=== PATIENT | male | born 1945 | race Caucasian/White ===

== ENCOUNTER 2017-03-05 21:35 | Inpatient (IN) | payer OTHER ==
[~2017-03-05] VITALS: Ht 182.9 cm; Wt 51.6 kg
--- NOTE | ~2017-03-05 | EKG ---
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
[~2017-03-05 21:35] MED LIST: ALEVE220 MG PO; ASA81BEC PO; ATENOLOL 100MG100 MG PO; AUGMENTIN PO; ETODOLAC 400 M400 M1 PO; HYDROCODONE-AP1 EAC6 PO; LEVOTHYROXIN0.075 MG PO; LISINOPRIL20 MG PO; OMEPRAZOLE 20 M20 M1 PO; OMEPRAZOLE20 M2 PO; ONDANSETRON HCL4 M2 PO; PRILOSEC20 MG PO; PROTONIX 20 MG20 MG PO; TENORMIN25 MG PO; TENORMIN50 MG PO; TRAMADOL 50 MG50 MG PO; TRINATE TABLET1 TAB PO; URSODIOL300 MG PO; VIAGRA100 MG PO; VITAMIN B-1100 M1 PO; WELLBUTRIN 100100 MG PO; ZOFRAN ODT4 MG PO; [UNRECOGNIZED DRUG - CODE] PO
[2017-03-05 21:38] VITALS: BP 126/63
[2017-03-05 22:27] LABS: ABSOLUTE NEUTROPHILS 4.5 thou/uL (1.4-8.2); BASOPHILS 1.1 % (0.0-2.0); EOSINOPHILS 0.3 % (0.0-3.0); HEMATOCRIT 36.7 % (42.0-52.0); HEMOGLOBIN 12.5 gm/dL (14.0-18.0); LYMPHOCYTES 15.2 % (24.0-44.0); MANUAL DIFF NO; MCH 32.7 pg (26.0-34.0); MCHC 34.2 g/dL (28.0-37.0); MCV 95.5 fL (80.0-100.0); MONOCYTES 7.8 % (1.0-8.0); PLATELET COUNT 135 thou/uL (150-400); POLYS 75.6 % (36.0-66.0); RBC 3.84 mil/uL (4.50-6.00); RDW 17.1 % (10.5-14.5)
[2017-03-05 22:33] LABS: ANION GAP 12 mmol/L (7-16); BUN 27 mg/dL (7-18); CALCIUM 8.5 mg/dL (8.5-10.1); CHLORIDE 103 mmol/L (98-107); CO2 25 mmol/L (21-32); CREATININE 1.1 mg/dL (0.7-1.3); GLUCOSE 71 mg/dL (74-106); POTASSIUM 4.4 mmol/L (3.5-5.1); SODIUM 140 mmol/L (136-145)
[2017-03-05 22:40] LABS: TROPONIN-I < 0.04 ng/mL (<0.04-0.07)
[2017-03-06 00:20] VITALS: BP 134/86
[2017-03-06 00:30] VITALS: BP 134/86
[2017-03-06 04:45] VITALS: BP 144/82
[2017-03-06 05:06] LABS: CHOLESTEROL 84 mg/dL (<200); HDL CHOLESTEROL 45 mg/dL (>40); LDL CHOLESTEROL 28 mg/dL (<100); TC:HDL 1.9 Ratio (Not establshd); TRIGLYCERIDE 58 mg/dL (<150); VLDL 12 mg/dL (<40)
[2017-03-06 05:07] LABS: SERUM ASSESSMENT Clear
[2017-03-06 07:41] VITALS: BP 138/61
[2017-03-06 16:15] VITALS: BP 112/51
[2017-03-06 19:36] VITALS: BP 117/60
[2017-03-07 04:53] VITALS: BP 130/60
[2017-03-07 05:47] LABS: HEMATOCRIT 33.1 % (42.0-52.0); HEMOGLOBIN 11.5 gm/dL (14.0-18.0); MCH 32.7 pg (26.0-34.0); MCHC 34.8 g/dL (28.0-37.0); MCV 94.2 fL (80.0-100.0); RBC 3.51 mil/uL (4.50-6.00); RDW 17.5 % (10.5-14.5); WBC 6.8 thou/uL (4.0-11.0)
[2017-03-07 06:05] LABS: CALCIUM 8.4 mg/dL (8.5-10.1); CREATININE 1.1 mg/dL (0.7-1.3); POTASSIUM 3.8 mmol/L (3.5-5.1)
[2017-03-07 08:00] VITALS: BP 128/75
[2017-03-07 16:00] VITALS: BP 118/60
[2017-03-07 17:24] VITALS: BP 118/60
== END 2017-03-07 17:50 | disposition home or self-care (01) | DRG 391 ==
LOC: ER 21:35 → 4S 23:09 → EROBS 23:09 → 4S 03-06 00:11
PROVIDERS: Emergency Medicine; Nurse Practitioner Family
DX: K21.9 Gastro-esophageal reflux disease without esophagitis (principal); E43 Unspecified severe protein-calorie malnutrition; Z68.1 Body mass index [BMI] 19.9 or less, adult; R07.9 Chest pain, unspecified; I25.10 Atherosclerotic heart disease of native coronary artery without angina pectoris; I10 Essential (primary) hypertension; E78.5 Hyperlipidemia, unspecified; E03.9 Hypothyroidism, unspecified; F17.210 Nicotine dependence, cigarettes, uncomplicated; E78.00 Pure hypercholesterolemia, unspecified; Z85.89 Personal history of malignant neoplasm of other organs and systems; Z93.0 Tracheostomy status; Z93.1 Gastrostomy status; Z90.49 Acquired absence of other specified parts of digestive tract; Z79.82 Long term (current) use of aspirin; Z79.899 Other long term (current) drug therapy
CPT/HCPCS: 10100

== ENCOUNTER 2017-03-14 16:57 | Inpatient (IN) | payer OTHER ==
[~2017-03-14] VITALS: Ht 182.9 cm; Wt 50.7 kg
--- NOTE | ~2017-03-14 | EKG ---
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
--- NOTE | ~2017-03-14 | HC ---
[facility] [place] [address] CONSULTATION Name: JORDAN PARMAR Room #: 443-P [facility] IN ..#: [id number] Admission: 03/14/17 Attend Phys: Zachary Aguila MD Discharge: 03/17/17 Date of : 43 Report #: [id number] THIS REPORT FOR: //name// CC: [facility] physician/PCP Sterling Aguila DATE OF SERVICE: 03/16/2017 We were asked to see the patient by Dr. Johnson. INDICATIONS: The patient is a 72-year-old with chest pain. The patient states that he has chest pain on occasion, characterized as severe mid sternal pain without specific radiation. This was initially thought to be indigestion, but became unassociated with meals, there is no particular association with exertion. We note that the patient had a negative chemical stress test recently. Cardiac catheterization shows a mid portion, 75% LAD, 80% in distal circumflex beyond large marginals and 60% right coronary stenosis. Left ventricular function satisfactory by echo. PAST HISTORY: Significant for throat cancer treated with radiation and chemotherapy. The patient also has hypothyroidism, hypertension and elevated cholesterol. SOCIAL HISTORY: The patient is . He lives in [place] near the [facility]. He is a longtime smoker, continues to do so and has 2 drinks of alcohol a day. MEDICATIONS AT HOME: Atenolol, Protonix, levothyroxine, hydrocodone. ALLERGIES: None known. FAMILY HISTORY: Positive for coronary artery disease in mother who is . REVIEW OF SYSTEMS: GENERAL: The patient has been in his usual health. No change in appetite, no fatigability, sleeping problems, fever, eyes, no vision changes. HEENT: No headache, vertigo, or hearing problems. RESPIRATORY: No shortness of breath. No cough or sputum production. CARDIAC: As mentioned, chest pain, no palpitations. SKIN: No rash or infection. ENDOCRINE: No hot or cold intolerance. GASTROINTESTINAL: No nausea, vomiting, diarrhea or constipation. [facility] [address] [place] [address] CONSULTATION Name: JORDAN PARMAR Room #: 443-P [facility] IN .R.#: [id number] Admission: 03/14/17 Attend Phys: Zachary Aguila MD Discharge: 03/17/17 Date of : 41 Report #: [id number] GENITOURINARY: No urgency, frequency seizures. No motor or sensory dysfunction. PSYCHIATRIC: No depression or anxiety. MUSCULOSKELETAL: No bone or joint problems. IMMUNOLOGIC: No lupoid rash, no rheumatoid arthritis. PHYSICAL EXAMINATION: VITAL SIGNS: Blood pressure 132/64, heart rate 81, respiratory rate 18, temperature 36.6, O2 sat 95% on room air. The patient is a thin fellow, ectomorphic habitus. HEENT: Normocephalic. No icterus, no arcus. NECK: No lymphadenopathy, left cervical bruit. CHEST: Decreased breath sounds bilaterally. Heart rhythm regular. No murmurs or gallops. ABDOMEN: Soft, no mass, no tenderness. EXTREMITIES: No clubbing, cyanosis or edema. NEUROLOGIC: No motor or sensory dysfunction. Oriented x 3. MUSCULOSKELETAL: No bone or joint dyssymmetry or deformity. SKIN: No rash or infection. PSYCHIATRIC: Shows insight into problem and answers questions appropriately. Situation was discussed with the patient, options and alternatives were reviewed with Dr. Johnson and with the patient. Options include medical management, angioplasty with stent placement, and surgery, the patient has not been on aggressive medical management and he does wish to avoid surgery. The patient would like to try medical management to see if this controls symptoms. The coronary artery disease is not severe enough in our opinion to threaten life and operation would be for symptom improvement only at this point, if this fails with medical management, then more aggressive definitive treatment can be recommended. The patient understands all of this and agrees with this approach. Thank you for the consult. <ELECTRONICALLY SIGNED> By: Duncan Gtz MD 03/18/17 1159 2037 2246 Duncan Gtz MD /nt
--- NOTE | ~2017-03-14 | CATHLAB ---
[address] [address] [facility] [place] [address] INVASIVE PROCEDURE REPORT Name: JORDAN PARMAR Room #: 443-P [facility]#: [id number] Admission: 03/14/17 Attend Phys: Zachary Aguila MD Discharge: 03/17/17 Date of : 41 Date of Service: 03/17/17 1806 Report #: [id number] THIS REPORT FOR: //name// CC: [facility] physician/PCP Sterling Aguila DATE OF SERVICE: 03/16/2017 INDICATIONS: A 72-year-old male patient with chest pain and significant risk factors. PROCEDURES: 1. Left heart catheterization. 2. Selective left and right coronary angiography. 3. Measurement of left ventricular end diastolic pressures. SANDSTONE SPLITTER: Mike Johnson M.D. BRIEF DESCRIPTION OF PROCEDURE: After informed consent was obtained, the patient was brought to the cardiac catheterization laboratory in stable condition. The patient's right groin was prepped and draped in the usual sterile manner after which lidocaine was then instilled. Utilizing a modified Seldinger technique, the right femoral artery was then accessed. Under fluoroscopic visualization using selective coronary catheters, the right and left coronaries were opacified and visualized. The left ventriculogram was likewise imaged per standard protocol with EDP being measured. Subsequent to this, the sheath was removed, hemostasis achieved. The patient tolerated the procedure well. There were no complications. FINDINGS: 1. FLUOROSCOPY: Under fluoroscopic visualization, there was calcific plaquing along the epicardial coronary arteries. No calcific plaquing on the valvular intramyocardial structures of the heart. 2. HEMODYNAMICS: A. Aortic pressure 113/76. B. Left ventricular end diastolic pressure is 24-27. 3. ANGIOGRAPHY: This is a right coronary dominant system. A. Left main is of normal origin and caliber, bifurcates left anterior descending and left circumflex and is free of high-grade obstructive disease. B. Left anterior descending is a moderate caliber type 2 vessel which courses in the anterior interventricular sulcus. There is a mid LAD lesion, which appears to be 70% with an eccentric . The LAD gives rise to diagonal and septal branches were free of significant high-grade plaquing. C. Left circumflex is a nondominant moderate-caliber vessel which courses in the AV groove, gives rise to a terminal marginal branch prior to which there is [facility] [address] [place] [address] INVASIVE PROCEDURE REPORT Name: JORDAN PARMAR Room #: 443-P [facility] IN ..#: [id number] Admission: 03/14/17 Attend Phys: Zachary Aguila MD Discharge: 03/17/17 Date of : 41 Date of Service: 03/17/17 1806 Report #: [id number] a 95+% stenosis. Beyond this, the vessel is quite small and diminutive. D. Right coronary is a moderate caliber to large caliber vessel, courses in the AV groove where there is a 60% proximal lesion. It then continues on to the crux of the heart where it gives rise to posterior descending artery and posterolateral branch, all of which are free of high-grade disease. IMPRESSION: 1. Coronary artery disease, severe, 3 vessel. 2. Abnormal hemodynamics. RECOMMENDATIONS: In view of the patient having high-grade 2-vessel disease with a moderate RCA, surgical option will be discussed with the patient. We will have him speak to the surgeon, but if he is unwilling, then percutaneous revascularization would be the next most appropriate option followed by medical management. We will await the patient's decision. <ELECTRONICALLY SIGNED> By: Mike Johnson MD 03/18/17 1022 1806 1949 Mike Johsnon MD /nt
--- NOTE | ~2017-03-14 | TST ---
[facility] [place] [address] TREADMILL STRESS TEST Name: JORDAN PARMAR Room #: 443-P [facility]#: [id number] Admission: 03/14/17 Attend Phys: Zachary Aguila MD Discharge: 03/17/17 Date of : 41 Date of Service: 03/18/17 1113 Report #: [id number] THIS REPORT FOR: //name// CC: [facility] physician/PCP Sterling Aguila DATE OF SERVICE: 03/17/2017 EXERCISE TREADMILL STUDY DATE OF PROCEDURE: 03/17/2017. This is a 72-year-old male patient with 2-vessel coronary artery disease. Study is obtained to evaluate effectiveness of medical regimen. PROCEDURE: Symptom-limited low-level treadmill. BRIEF DESCRIPTION OF PROCEDURE: After informed consent was obtained, the patient was brought to the exercise treadmill suite in stable condition. The patient underwent modified Oren protocol exercise treadmill study, exercising to about 2 minutes 54 seconds. The study was stopped secondary to dyspnea and fatigue. The patient denied any chest pain, pressure, tightness or heaviness. Resting electrocardiogram demonstrated normal sinus rhythm and nonspecific ST-T wave changes. Continuous electrocardiographic monitoring demonstrated development of PACs, but no significant ventricular tachyarrhythmias. Occasional PVCs were also noted. Maximal heart rate achieved was 141 beats per minute, which was 93% of predicted maximal heart rate. The patient achieved 4.6 METS. Resting echocardiogram, normal sinus rhythm, nonspecific ST-T wave changes. Continuous electrocardiographic monitoring demonstrated the development of some downsloping ST segments, which were not consistent to beat. IMPRESSION: 1. Subjectively negative for reproduction of anginal symptoms at this heart rate and double product. 2. Poor functional capacity. 3. Equivocal ST-segment changes which were not consistently compatible with diagnosis of ischemia without any symptoms developing of chest pain. By: 1113 1440 Mike Johnson MD /nt
[2017-03-14 16:58] VITALS: BP 145/82
[2017-03-14 17:23] LABS: ABSOLUTE NEUTROPHILS 4.4 thou/uL (1.4-8.2); BASOPHILS 1.2 % (0.0-2.0); HEMATOCRIT 38.3 % (42.0-52.0); HEMOGLOBIN 13.1 gm/dL (14.0-18.0); LYMPHOCYTES 26.5 % (24.0-44.0); MANUAL DIFF NO; MCH 32.5 pg (26.0-34.0); MCHC 34.1 g/dL (28.0-37.0); MCV 95.2 fL (80.0-100.0); MONOCYTES 9.3 % (1.0-8.0); PLATELET COUNT 252 thou/uL (150-400); RBC 4.02 mil/uL (4.50-6.00); RDW 16.8 % (10.5-14.5); WBC 7.1 thou/uL (4.0-11.0)
[2017-03-14 17:30] LABS: ANION GAP 9 mmol/L (7-16); BUN 21 mg/dL (7-18); CALCIUM 9.1 mg/dL (8.5-10.1); CHLORIDE 103 mmol/L (98-107); CO2 27 mmol/L (21-32); CREATININE 1.1 mg/dL (0.7-1.3); GLUCOSE 76 mg/dL (74-106); POTASSIUM 4.8 mmol/L (3.5-5.1); SODIUM 139 mmol/L (136-145)
[2017-03-14 17:38] LABS: TROPONIN-I < 0.04 ng/mL (<0.04-0.07)
[2017-03-14 20:30] VITALS: BP 144/72
[2017-03-14 22:39] LABS: APTT 26.6 Seconds (24.5-32.8); PROTIME 10.4 Seconds (9.3-11.4)
[2017-03-15 04:18] VITALS: BP 139/71
[2017-03-15 04:43] LABS: ANION GAP 12 mmol/L (7-16); BUN 20 mg/dL (7-18); CALCIUM 8.3 mg/dL (8.5-10.1); CHLORIDE 104 mmol/L (98-107); CHOLESTEROL 83 mg/dL (<200); CO2 24 mmol/L (21-32); GLUCOSE 84 mg/dL (74-106); HDL CHOLESTEROL 47 mg/dL (>40); LDL CHOLESTEROL 13 mg/dL (<100); SODIUM 140 mmol/L (136-145); TC:HDL 1.8 Ratio (Not establshd); TRIGLYCERIDE 116 mg/dL (<150); VLDL 23 mg/dL (<40)
[2017-03-15 04:48] LABS: POTASSIUM 3.5 mmol/L (3.5-5.1)
[2017-03-15 08:05] VITALS: BP 149/69
[2017-03-15 16:16] VITALS: BP 114/65
[2017-03-15 20:05] VITALS: BP 132/64
[2017-03-16 08:56] VITALS: BP 136/58
[2017-03-16 16:31] VITALS: BP 169/73
[2017-03-16 20:25] VITALS: BP 114/59
[2017-03-17 05:23] VITALS: BP 133/69
[2017-03-17 08:00] VITALS: BP 112/63
[2017-03-17 16:31] VITALS: BP 121/69
[2017-03-17] MEDS ORDERED: METOPROLOL SUCC25 M1 PO (18:03)
[2017-03-17] MEDS ORDERED: IMDUR 30 MG TAB30 M1 PO (18:04)
[2017-03-17 18:13] VITALS: BP 121/69
== END 2017-03-17 19:17 | disposition home or self-care (01) | DRG 286 ==
LOC: ER 16:57 → EROBS 18:10 → 4S 18:10
PROVIDERS: Emergency Medicine; Nurse Practitioner; Nurse Practitioner Family
PROC: 4A023N7 Measurement of Cardiac Sampling and Pressure, Left Heart, Percutaneous Approach (ICD-10-PCS; principal; 2017-03-16)
PROC: B2111ZZ Fluoroscopy of Multiple Coronary Arteries using Low Osmolar Contrast (ICD-10-PCS; 2017-03-16)
PROC: B2151ZZ Fluoroscopy of Left Heart using Low Osmolar Contrast (ICD-10-PCS; 2017-03-16)
DX: I25.110 Atherosclerotic heart disease of native coronary artery with unstable angina pectoris (principal); E43 Unspecified severe protein-calorie malnutrition; J44.9 Chronic obstructive pulmonary disease, unspecified; I10 Essential (primary) hypertension; F17.210 Nicotine dependence, cigarettes, uncomplicated; E78.5 Hyperlipidemia, unspecified; E03.9 Hypothyroidism, unspecified; Z93.0 Tracheostomy status; Z85.09 Personal history of malignant neoplasm of other digestive organs; Z93.1 Gastrostomy status; Z82.49 Family history of ischemic heart disease and other diseases of the circulatory system; Z80.9 Family history of malignant neoplasm, unspecified; Z79.899 Other long term (current) drug therapy; I25.2 Old myocardial infarction; Z71.6 Tobacco abuse counseling
CPT/HCPCS: 10100

== ENCOUNTER 2019-06-09 13:38 | Inpatient (IN) | payer OTHER ==
[~2019-06-09] VITALS: Ht 182.9 cm; Wt 52.2 kg
--- NOTE | ~2019-06-09 | HC ---
[facility] [place] [address] CONSULTATION Name: JORDAN PARMAR Room #: 204-P [facility] IN ..#: [id number] Admission: 06/09/19 Attend Phys: Randy Goldman MD Discharge: Date of : 43 Report #: [id number] THIS REPORT FOR: //name// CC: [facility] physician/PCP Randy Goldman DATE OF SERVICE: 06/10/2019 IDENTIFICATION: Psychiatric consultation was requested for alcohol withdrawal. HISTORY OF PRESENT ILLNESS: The patient is a 74-year-old , retired male with history of alcohol dependence. He drinks about a pint of whiskey on a daily basis. He denies any past history of depression, jo-ann or psychosis. The patient presents to the hospital with hip fracture due to falling up the stairs while carrying his dog. He has been placed on alcohol withdrawal protocol, but has not required any doses of Ativan thus far. On interview, the patient states that his mood is good and he denies any concerns for alcohol withdrawal today. ALLERGIES: None. MEDICATIONS: Ativan as needed according to the CIWA protocol. PAST MEDICAL HISTORY: COPD, transaminitis, bile duct stone, right hip fracture, rhabdomyolysis, right inguinal hernia, hypothyroidism, hypertension, hyperlipidemia. FAMILY HISTORY: Noncontributory. SOCIAL HISTORY: , lives with , retired. Smokes one pack of cigarettes per day. LABORATORY DATA: Urine drug screen negative. Blood alcohol level less than 10, bilirubin 1.1. CK 718. MENTAL STATUS EXAMINATION: Cachectic-appearing male, pleasant, good eye contact. Speech regular rate and rhythm. Thought process linear, logical and coherent. No hallucinations or delusions. No suicidal or homicidal ideation. Affect calm and euthymic. Alert and oriented x3. No evidence of tremors. Insight and judgment good. DIAGNOSIS: Alcohol dependence. PLAN: I agree with the alcohol withdrawal protocol. Currently, the patient is [facility] [address] [place] [address] CONSULTATION Name: GHULAMNEELAM Room #: 204-P [facility] IN [facility].#: [id number] Admission: 06/09/19 Attend Phys: Randy Goldman MD Discharge: Date of : 43 Report #: [id number] not demonstrating any signs or symptoms of alcohol withdrawal, but he will need to be monitored for at least the next couple of days. Thank you for this consultation. Please contact us with any further questions or concerns.. By: 1001 213 Queenie Sterling MD /nt
[~2019-06-09 13:38] MED LIST changes: +IMDUR 30 MG TAB30 M1 PO; +METOPROLOL SUCC25 M1 PO
[2019-06-09 13:45] VITALS: BP 176/94
[2019-06-09 14:10] LABS: ABSOLUTE NEUTROPHILS 9.9 thou/uL (1.4-8.2); BASOPHILS 0.7 % (0.0-2.0); HEMATOCRIT 37.8 % (42.0-52.0); HEMOGLOBIN 12.6 gm/dL (14.0-18.0); LYMPHOCYTES 6.4 % (24.0-44.0); MCH 32.3 pg (26.0-34.0); MCHC 33.4 g/dL (28.0-37.0); MCV 96.8 fL (80.0-100.0); MONOCYTES 10.7 % (1.0-8.0); PLATELET COUNT 143 thou/uL (150-400); POLYS 82.2 % (36.0-66.0); RBC 3.91 mil/uL (4.50-6.00); RDW 18.4 % (10.5-14.5); WBC 12.1 thou/uL (4.0-11.0)
[2019-06-09 14:24] LABS: APTT 27.9 Seconds (24.5-32.8); PROTIME 10.4 Seconds (9.3-11.4)
[2019-06-09 14:28] LABS: ANION GAP 14 mmol/L (7-16); BUN 19 mg/dL (7-18); CALCIUM 8.9 mg/dL (8.5-10.1); CHLORIDE 98 mmol/L (98-107); CO2 23 mmol/L (21-32); CREATININE 0.9 mg/dL (0.7-1.3); GLUCOSE 123 mg/dL (74-106); SODIUM 135 mmol/L (136-145)
[2019-06-09 14:29] LABS: ALBUMIN 3.5 g/dL (3.4-5.0); SALICYLATE 4.6 mg/dL (2.8-20.0); SGOT 35 U/L (15-37); SGPT 12 U/L (30-65); TOTAL BILIRUBIN 1.1 mg/dL (<0.1-1.0); TOTAL PROTEIN 7.6 g/dL (6.4-8.2)
[2019-06-09 14:33] LABS: URINE BILIRUBIN NEGATIVE (Negative); URINE BLOOD TRACE (Negative); URINE CLARITY CLEAR; URINE COLOR YELLOW; URINE GLUCOSE-RANDOM* NEGATIVE (Negative); URINE KETONES 1+ (Negative); URINE LEUKOCYTES NEGATIVE (Negative); URINE NITRITE NEGATIVE (Negative); URINE PROTEIN (DIPSTICK) TRACE (Negative)
[2019-06-09] MEDS ORDERED: ACCUNEB SO1.25 MG/1 INH (14:36)
[2019-06-09 14:42] LABS: AMP/METHAMP Negative (Negative); BARBITURATES Negative (Negative); BENZODIAZEPINES Negative (Negative); COCAINE Negative (Negative); METHADONE Negative (Negative); OPIATES Negative (Negative); PCP Negative (Negative)
[2019-06-09] MEDS ORDERED: SYMBICORT160 MCG/4. INH (15:17)
[2019-06-09] MEDS ORDERED: COMBIVENT INH (15:17)
[2019-06-09 15:50] LABS: MAGNESIUM 1.4 mg/dL (1.8-2.4); PHOSPHORUS 3.5 mg/dL (2.5-4.9)
[2019-06-09 15:55] VITALS: BP 184/87
[2019-06-09 15:56] VITALS: BP 184/87
[2019-06-09 16:20] LABS: FOLIC ACID 3.2 ng/mL (8.6-58.9)
[2019-06-09 16:26] LABS: ALBUMIN 3.5 g/dL (3.4-5.0); TOTAL PROTEIN 7.8 g/dL (6.4-8.2)
[2019-06-09 16:39] VITALS: BP 169/73
[2019-06-09 16:45] VITALS: BP 194/92
--- NOTE | 2019-06-09 17:48 | NUR ---
PT ADMITED FROM ER. ADMISSION HX AND ASSESSMENT COMPLETED. ORDERS NOTED. PT REPORT HAVING PROBLEM URINATING. POST VOID BLADDER SCAN SHOWED 358. ORDERS GIVEN TO INSERT A RICK. ON CIWA PROTOCAL. NPO AFTER MIDNIGHT. WILL CONTINUE TO MONITOR.
[2019-06-09 20:00] VITALS: BP 158/82
[2019-06-10] VITALS (16 sets, daily range): BP systolic 90–164; BP diastolic 49–74
--- NOTE | 2019-06-10 03:16 | NUR ---
ASSUMED PT CARE AT 1900. PT A/OX4, IN BED, VITAL SIGNS STABLE, ASSESSMENT CHARTED. PAIN ADEQUTELY MANAGED WITH PAIN MEDICATION. PT MADE COMFORTABLE IN BED. FALL PRECAUTIONS IN PLACE. PT NPO AT MIDNIGHT FOR SURGERY IN AM. CIWA PROTOCOL IN PLACE. PT RESTED WELL THROUGH THE NIGHT. PROGRESSING TOWARD PLAN OF CARE. WILL CONTINUE TO MONITOR.
[2019-06-10 05:11] LABS: HEMATOCRIT 34.4 % (42.0-52.0); HEMOGLOBIN 11.3 gm/dL (14.0-18.0); MCH 32.2 pg (26.0-34.0); MCHC 32.9 g/dL (28.0-37.0); RBC 3.51 mil/uL (4.50-6.00); RDW 18.3 % (10.5-14.5); WBC 13.7 thou/uL (4.0-11.0)
[2019-06-10 05:28] LABS: CREATININE 0.9 mg/dL (0.7-1.3); POTASSIUM 3.2 mmol/L (3.5-5.1)
--- NOTE | 2019-06-10 15:18 | NUR ---
PT HAD SURGERY THIS AM. SURGICAL DRESSING ON THE RIGHT HIP C/D/I. ACDS ON. RICK CATHETER PATENT TO DD. FALL PRECAUTION IN PLACE. WILL CONTINUE TO MONITOR.
[2019-06-11] VITALS (7 sets, daily range): BP systolic 104–143; BP diastolic 52–74
--- NOTE | 2019-06-11 04:17 | NUR ---
ASSESSMENT CHARTED. VSS. BP LOW, ASYMPTOMATIC. PT DENIES PAIN EXCEPT WHEN MOVING, DENIES PAIN MEDS AT THIS TIME, EDUCATED ON PAIN MANAGEMENT WHEN NEEDED. CIWA PROTOCOL, ATIVAN PER EMAR GIVEN. RICK DD. FLUIDS AND ABX PER EMAR. R HIP DRESSING CDI. SCDS BILAT. WILL CONTINUE TO MONITOR AND WITH POC.
[2019-06-11 05:24] LABS: HEMATOCRIT 22.3 % (42.0-52.0); MCH 32.7 pg (26.0-34.0); MCHC 32.9 g/dL (28.0-37.0); MCV 99.5 fL (80.0-100.0); RBC 2.25 mil/uL (4.50-6.00); RDW 18.8 % (10.5-14.5); WBC 16.3 thou/uL (4.0-11.0)
[2019-06-11 05:26] LABS: HEMOGLOBIN 7.3 gm/dL (14.0-18.0)
[2019-06-11 05:47] LABS: CALCIUM 7.9 mg/dL (8.5-10.1); CREATININE 1.1 mg/dL (0.7-1.3); MAGNESIUM 1.8 mg/dL (1.8-2.4); PHOSPHORUS 2.8 mg/dL (2.5-4.9); POTASSIUM 3.4 mmol/L (3.5-5.1)
--- NOTE | 2019-06-11 08:00 | O ---
[facility] [place] [address] OPERATIVE REPORT Name: JUAN PARMAR J Room #: 204-P ADM IN M.R.#: [id number] Admission: 06/09/19 Attend Phys: Randy Goldman MD Discharge: Date of : 43 Report #: [id number] THIS REPORT FOR: //name// CC: [facility] physician/PCP Randy Goldman DATE OF SERVICE: 06/10/2019 SERVICE: Orthopedics. FACILITY: [facility]. SURGEON: Juan Michaels MD WASHROOM ATTENDANT: Veena Yoder NP. INDICATIONS FOR WASHROOM ATTENDANT: Assistance with reduction and internal fixation of this complex intertrochanteric hip fracture fixation. PREOPERATIVE DIAGNOSES: Displaced right intertrochanteric hip fracture. POSTOPERATIVE DIAGNOSIS: Displaced right intertrochanteric hip fracture. PROCEDURE: IM nail fixation of right intertrochanteric hip fracture with open reduction. COMPLICATIONS: None. DRAINS: None. SPECIMENS: None. ESTIMATED BLOOD LOSS: 150 mL. FINDINGS: Thornton and Nephew 42 cm x 11.5 mm 125 degree Thornton and Nephew InterTan nail with 95/90 interfrag screws and a 45 mm distal locking screw. HISTORY: The patient is a 74-year-old gentleman who sustained a fall at home resulting in a displaced right intertrochanteric hip fracture. He was admitted for definitive treatment. Risks, benefits, alternatives, and indication of surgery discussed with him in detail. Risks include but not limited to pain, bleeding, injury to nerves or blood vessels, malunion, nonunion, infection, need for further surgery including revision as well as complications related to anesthesia such as stroke, heart attack, pulmonary complications, thromboembolic disease and . Despite these risks, he wished to proceed. [facility] [address] [place] [address] OPERATIVE REPORT Name: GHULAMJUAN Room #: 204-P [facility] IN ..#: [id number] Admission: 06/09/19 Attend Phys: Randy Goldman MD Discharge: Date of : 41 Report #: [id number] PROCEDURE IN DETAIL: After right lower extremity was correctly identified in preoperative holding area as the operative extremity, the patient was taken to the operating room where general anesthesia was induced without complication. He was padded appropriately. Prophylactic antibiotics were administered at appropriate time. Legs were placed in traction boots. C-arm was used to assess the reduction. There was a good alignment on the AP, but the lateral showed quite a bit of apex anterior malangulation with translation of the femoral neck anteriorly indicating this was actually going to require an open reduction rather than a closed reduction. Right leg was prepped and draped in standard sterile fashion. Time-out procedure was performed. Under C-arm fluoroscopy in multiple planes, an incision was made and dissection taken down to the tip of the trochanter with a guidepin was then placed into the proximal femur. Advanced again under fluoroscopy on AP and lateral view. An incision was then made more distally and a Foy elevator was slid over the anterior aspect of the femur onto the femoral neck and then this would allow for a downward translation pressure on the femoral neck component to have better alignment. The guidepin was then advanced and then the entry reamer was utilized to obtain access to the proximal femur and then the femur was sequentially reamed to a 12.5 mm reamer for the 11.5 mm nail. The nail was then advanced over the guidewire and then with the open reduction maneuver performed with the Foy elevator, the outrigger was then used to place a guidepin into the femoral head. We did have to adjust the position of the pin because of the angle of displacement, I feel it was in satisfactory position. The outer reamer was then used and then the proximal portion of the femur was prepared for the cephalomedullary component of the internal fixation anticipating 10 mm of compression. The compression screw was then placed and fluoroscopy was used to confirm appropriate positioning of all hardware and then to watch the compression occurred which provided a stable fixation. After this was completed, the nail was locked proximally. Perfect [place] technique was then used to place the interlocking screw distally with a 45 mm distal interlock screw. After this was completed, the wound was copiously irrigated. Final x-rays were taken. Confirmation was performed radiographically in the assessment of the apex distance which was appropriate on AP and lateral view. Stable fixation was felt to be achieved with good alignment and length and rotation. Wounds were copiously irrigated. The IT band layer was closed with 0 Vicryl suture. Skin was closed with 2-0 Vicryl followed by skin guillermina. Sterile dressing was applied. The patient was awakened from anesthesia and taken to recovery room in stable condition. No complications. All counts were reported as correct. <ELECTRONICALLY SIGNED> By: Juan Michaels MD 06/11/19 0800 1321 1335 Juan Michaels MD /nt
[2019-06-11 09:25] LABS: HEMATOCRIT 21.1 % (42.0-52.0)
--- NOTE | 2019-06-11 14:03 | NUR ---
patient sedated in restraints due to ETOH withdraw. Patient admits from independent home post fall. Patient sustained hip fx and rec hip pinning. Sp with sister in law and niece who are at bedside. They report patient and live in independent home. They smoke at home and have 4 dogs. Patients spouse has a dtr but patient has no children. His brother Ed is supportive [phone]. Family has spoken with patient and spouse regarding moving to assisted living. Family reports they have denied need. Patient has a flight of steps to second floor for bedroom and bathroom. Per RN unable to come to hospital today. Niece plans to give snf list. Patient will likely need post acute care. Attempted to call left message on home number her cell is not a working number.
--- NOTE | 2019-06-11 16:22 | NUR ---
PT CARE ASSUMED APPROX 0700. PT AWAKE BUT NOT ALERT/DROWSY AND ORIENTED ONLY TO PERSON. IS AWARE AND ORDERS TO UTILIZE CIWA MEDS NECESSARY. DENIES PAIN AND SOA. VSS. NO DISTRESS NOTED. HIP PRECAUTIONS IN PLACE. CIWA PRECAUTIONS IN PLACE. FALL PRECAUTIONS IN PLACE. PT TOLERATING POC. BWR REMAIN IN PLACE. PT CONTINUES TO POSE A RISK TO SELF WHEN OUT OF BWR. AND EXTENDED GIVEN MULTIPLE CLINICAL UPDATES THIS SHIFT. ALL DENY QUESTIONS AND CONCERNS REGARDING POC. PT UNABLE TO PARTICIPATE IN THERAPIES THIS SHIFT DUE TO WITHDRAWL SYMPTOMS AND TREATMENT. DSG TO RLE C/D/I. NO ORDERS TO CHANGE. BLEEDING FROM PENIS NOTED AFTER PT PULLING ON CATH. RE-EDUCATED AND REORIENTED. STABLE AT THIS TIME.
[2019-06-12] VITALS (7 sets, daily range): BP systolic 87–119; BP diastolic 45–72
--- NOTE | 2019-06-12 03:09 | NUR ---
ASSESSMENT CHARTED. VSS. PT ALERT TO SELF AND PLACE, CONFUSED. CIWAH PROTOCOL. R HIP FX DRESSING CDI, PRECATUIONS. Q2 CHECKS SOFT NONVIOLENT RESTRAINTS. RICK IN PLACE DD. PRN AND SCHEDULED MEDS PER EMAR ALC WITHDRAW. X2 CALL ALEXIS FORD OTHER TO CHECK IN ON PT. WILL CONTINUE TO MONITOR AND WITH POC.
[2019-06-12 05:56] LABS: HEMOGLOBIN 6.9 gm/dL (14.0-18.0)
[2019-06-12 05:57] LABS: HEMATOCRIT 20.9 % (42.0-52.0); MCH 32.9 pg (26.0-34.0); MCV 99.5 fL (80.0-100.0); RBC 2.1 mil/uL (4.50-6.00); RDW 18.5 % (10.5-14.5); WBC 12.7 thou/uL (4.0-11.0)
[2019-06-12 06:10] LABS: CALCIUM 8.2 mg/dL (8.5-10.1); CREATININE 0.8 mg/dL (0.7-1.3); MAGNESIUM 1.8 mg/dL (1.8-2.4); POTASSIUM 3.5 mmol/L (3.5-5.1)
[2019-06-12 07:05] LABS: % SATURATION 5 % (20-39); IRON 11 ug/dL (65-175); TIBC 204 ug/dL (250-450)
[2019-06-12 07:40] LABS: OBSERVED RETIC COUNT 2.4 % (0.6-2.6)
[2019-06-12 13:38] LABS: HEMATOCRIT 20.1 % (42.0-52.0); MCHC 32.6 g/dL (28.0-37.0); RDW 18.8 % (10.5-14.5)
[2019-06-12 13:40] LABS: HEMOGLOBIN 6.5 gm/dL (14.0-18.0); MCH 32.4 pg (26.0-34.0); MCV 99.3 fL (80.0-100.0); RBC 2.02 mil/uL (4.50-6.00)
--- NOTE | 2019-06-12 15:54 | NUR ---
PATIENT REMAINED ON CIWA PROTOCOL & RESTRAINTS THIS SHIFT. MONITORED FREQUENTLY. OFTEN PULLING AT LINES AND SURGICAL DRESSING. MEDICATION ADMINISTERED FOR AGITATION & PAIN ORDERED. PATIENT AGITATION, PAIN, & RESTLESSNESS DECREASED WITH MEDS. FALL PRECAUTIONS IN PLACE. EDUCATION PROVIDED TO FAMILY & SPOUSE. REPORT GIVEN TO NATALIE CADE AT 15:40.
--- NOTE | 2019-06-13 02:14 | NUR ---
ASSUMED CARE OF PATIENT AT 1900. BP LOW, PALE, MINIMALLY RESPONSIVE. KINESIOTHERAPIST NOTIFIED, ORDERS OBTAINED FOR BLOOD TRANSFUSION. 1 UNIT PRBC INFUSED. MORE ALERT, STABLE BLOOD PRESSURE. MORE RESPONSIVE. RESTRAINTS REMOVED. CALLED TWICE, UPDATED ON POC. STATES THEY BOTH DRINK A LOT. WILL ENCOURAGE ORAL INTAKE OF FLUIDS. MONITOR H&H. SURGICAL DRESSING SLIGHTLY SATURATED. CARLOS APPROPRIATE WITHOUT INFLAMMATION OR ISSUE. WILL CONTINUE TO MONITOR.
[2019-06-13 04:06] LABS: CALCIUM 8.4 mg/dL (8.5-10.1); CREATININE 0.9 mg/dL (0.7-1.3); MAGNESIUM 1.7 mg/dL (1.8-2.4); POTASSIUM 3.4 mmol/L (3.5-5.1)
[2019-06-13 04:15] LABS: HEMATOCRIT 23.3 % (42.0-52.0); HEMOGLOBIN 7.9 gm/dL (14.0-18.0); MCH 32.5 pg (26.0-34.0); MCHC 33.9 g/dL (28.0-37.0); MCV 96.1 fL (80.0-100.0); RBC 2.43 mil/uL (4.50-6.00); RDW 18.2 % (10.5-14.5); WBC 17.9 thou/uL (4.0-11.0)
[2019-06-13 04:45] VITALS: BP 125/70
[2019-06-13 07:30] VITALS: BP 132/60
[2019-06-13 12:17] VITALS: BP 109/54
--- NOTE | 2019-06-13 14:33 | NUR ---
VERY ACTIVE IN BED. UNINTELLIGIBLE SPEECH. TREMULOUS, GRASPING AT THE AIR IF SOMETHING IS THERE. TRIES TO SMOKE AN INVISIBLE CIGARETTE. INCONTINENT OF URINE. BROTHER VISITS AND DOES NOT STAY LONG HE IS UNABLE TO COMMUNICATE WITH HIS BROTHER. CALLS AND UPDATED ON POC. ATIVAN PRN, LIBRIUM ORDERED IN PUDDING. FED FEW BITES OF EGG AT BREAKFAST AND SMALL AMOUNT OF LUNCH. FALL PRECAUTIONS IN PLACE, FREQUENT CHECKS.
--- NOTE | 2019-06-13 15:24 | NUR ---
PATIENT CONT IN RESTRAINTS. HE WILL NEED POST ACUTE CARE. NEED THERAPY EVALS FOR EVAL OF POST ACUTE CARE.
[2019-06-13 17:30] VITALS: BP 136/54
[2019-06-13 19:39] VITALS: BP 100/44
[2019-06-14] VITALS (21 sets, daily range): BP systolic 85–129; BP diastolic 6–66
[2019-06-14 04:55] LABS: BE(vivo) 2.5 mmol/L (-2 to +3); HCO3 24.8 mmol/L (22.0-26.0); PCO2 28.9 mmHg (35.0-45.0); pH 7.551 (7.360-7.450); sO2 90.6 % (92.0-98.0)
[2019-06-14 04:55] LABS: HEMATOCRIT 21.5 % (42.0-52.0); HEMOGLOBIN 7.2 gm/dL (14.0-18.0); MCH 31.9 pg (26.0-34.0); MCHC 33.4 g/dL (28.0-37.0); MCV 95.5 fL (80.0-100.0); RBC 2.25 mil/uL (4.50-6.00); RDW 17.9 % (10.5-14.5); WBC 19.1 thou/uL (4.0-11.0)
[2019-06-14 04:58] LABS: PO2 50.2 mmHg (80.0-100.0)
[2019-06-14 05:06] LABS: CALCIUM 8.2 mg/dL (8.5-10.1); CREATININE 0.9 mg/dL (0.7-1.3); POTASSIUM 3.4 mmol/L (3.5-5.1)
--- NOTE | 2019-06-14 05:08 | NUR ---
PLASTIC HOSPITAL PRODUCTS ASSEMBLER ACTIVATED FOR DECREASED LOC AND RESP DISTRESS. SEE RAPID RESPONSE DOCUMENTATION FOR FURTHER DETAILS. PT PLACED ON VENTMASK AT 50%. PT BECAME MORE RESPONSIVE THE MORE HE WAS STIMULATED DURING THE PLASTIC HOSPITAL PRODUCTS ASSEMBLER. RN TO CONTINUE TO MONITOR.
--- NOTE | 2019-06-14 06:18 | NUR ---
FOOD AND NUTRITION TEACHER CALLED AND PATIENT STATUS REVIEWED. NEW ORDER FOR CTPE PER PROTOCOL. RN CALLED AND MADE AWARE OF NEW ORDER.
--- NOTE | 2019-06-14 10:31 | NUR ---
ASSUMED CARE PT AT SHIFT CHANGE. ASSESSMENT CHARTED. PT AROUSABLE, ORIETNED TO SELF. UNABLE TO FOLLOW COMMANDS, VENTURI MASK ON 35%. PT TACHYPNIC, SEEN BY PULOMONOLGY, ORDERS RECEIVED TO TRANSFER PT TO ICU, PHYSICIAN NOTIFIED, REPORT GIVEN TO ICU NURSE, TRANSFERRED PT TO ROOM 243 AT APPROX 1015.
[2019-06-14 11:41] LABS: BE(vivo) -0.8 mmol/L (-2 to +3); HCO3 21.9 mmol/L (22.0-26.0); PCO2 28.7 mmHg (35.0-45.0); PO2 74.1 mmHg (80.0-100.0); pH 7.501 (7.360-7.450); sO2 96.2 % (92.0-98.0)
--- NOTE | 2019-06-14 11:48 | NUR ---
1020-RECEIVED PT FROM [facility].--VW 1145-CALL TO FOR UPDTE.--VW
--- NOTE | 2019-06-14 11:55 | NUR ---
PT PLACED ON HOLD FROM P.T. DUE TO TX TO ICU S/P MANAGER LAND. PT HAS NOT BEEN ABLE TO PARTICIPATE IN P.T. FOR PAST SEVERAL DAYS WHILE ON CIWA PROTOCOL. REQUEST NEW P.T. ORDERS WHEN APPROPRIATE.
--- NOTE | 2019-06-14 14:33 | NUR ---
PATIENT TRANSFERRED TO ICU DUE TO A CHANGE IN MEDICAL STATUS. WILL NEED NEW OT ORDERS WHEN PATIENT IS MEDICALLY APPROPRIATE.
--- NOTE | 2019-06-14 15:39 | NUR ---
Pt transfered to ICU due to change in respiratory status. Currently on bipap. Will reassess his rehab needs once he is able to participate in therapy evelyn.
--- NOTE | 2019-06-14 15:50 | NUR ---
1430- IN TO SEE.--VW 1445- IN TO SEE.--VW
--- NOTE | 2019-06-14 17:44 | NUR ---
NOTIFIED TO PLACE ADDITIONAL ACCESS FOR THIS PATIENT IN ICU. THE RIGHT UPPER ARM BASILIC WAS WIDLEY PATENT. A #4F POWER MIDLINE WAS PLACED PER HOSPITAL POLICY. MIDLINE WAS TRIMMED TO 13CM AND ADVANCED WITHOUT DIFFICULTY. +BR +FLUSH- LINE RELEASED FOR USE
--- NOTE | 2019-06-14 20:07 | NUR ---
1800-PT'S BROTHER & IN MOST OF EARLY AFTERNOON. UPDATED TWICE BY PHONE. BRONCH TENTATIVELY PLANNED FOR TOMORROW.PT MOVING A LITTLE MORE AIR,ERIKA BIPAP WELL. UPDATED,ORDERS NOTED.--VW 1900-CARE TURNED OVER TO ONCOMING RN.--VW
[2019-06-15] VITALS (25 sets, daily range): BP systolic 91–131; BP diastolic 37–65
[2019-06-15 05:37] LABS: HEMOGLOBIN 6.9 gm/dL (14.0-18.0); MCH 32.7 pg (26.0-34.0); RDW 18.5 % (10.5-14.5)
[2019-06-15 05:39] LABS: HEMATOCRIT 20.4 % (42.0-52.0); MCHC 33.6 g/dL (28.0-37.0); MCV 97.3 fL (80.0-100.0); RBC 2.1 mil/uL (4.50-6.00); WBC 11.8 thou/uL (4.0-11.0)
[2019-06-15 06:07] LABS: CREATININE 0.9 mg/dL (0.7-1.3); MAGNESIUM 2.1 mg/dL (1.8-2.4); POTASSIUM 3.8 mmol/L (3.5-5.1)
--- NOTE | 2019-06-15 07:19 | NUR ---
0615 PT UP TO CHAIR FROM BED. EXTREMELY WEAK AND DIFFICULTY FINDING THE STRENGTH WE ATTEMPTED TO HAVE HER STAND ON STANDING SCALE FOR WEIGHT. BY THE TIME SHE GOT UP ON SCALE, THE SCALE HAD TURNED OFF AND WAS UNABLE TO GET WEIGHT AND SHE WAS SO EXHAUSTED WE HAD TO GET HER TO THE CHAIR TO REST. NOTIFIED DAY RN TO GET WT ON PT BEFORE BREAKFAST. PT ABLE TO REST AND NOW HER PAIN WHICH WAS 8/10 IS NOW 0/10.
--- NOTE | 2019-06-15 07:48 | EKG ---
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 HARDWICK : 1945 Requested By: Aixa Oates Order Number: [id number] MD: Tung Hernandez Measurements Intervals [place] Rate: 94 P: 267 NC: 83 QRS: 52 QRSD: 86 T: 219 QT: 368 QTc: 461 Interpretive Statements Supraventricular rhythm of uncertain mechanism, possible junctional tachycardia Diffuse ST and T wave abnormality Compared to ECG 03/14/2017 17:01:11 Sinus rhythm is no longer present Electronically Signed On 06-15-2019 7:48:06 CDT by Tung Hernandez [email or web address] <ELECTRONICALLY SIGNED> By: Tung Hernandez MD, [facility] 06/15/19 0748 09 09 Tung Hernandez MD, [facility] /EPI
--- NOTE | 2019-06-15 08:53 | NUR ---
Poor nutrition intake past 6 days due to etoh withdrawal. May want to consider dc maintenance fluids and start clinimix PPN at 125ml/hr
--- NOTE | 2019-06-15 10:41 | NUR ---
PT IS POD5 RIGHT HIP IM NAILING. HAS NOT BEEN ABLE TO WORK WITH PT/OT R/T ETOH WITHDRAWAL WITH AGITATION REQUIRING RESTAINTS FOR SAFETY. TRANSFERRED TO ICU 06/14 WITH RESP FAILURE REQUIRING CONTINUOUS BIPAP 40%. CT CHEST SHOWS MUCUS PLUGGING AND PER PULM POSSIBE BRONCH TODAY. ON PRECEDEX GTT. PSYCH FOLLOWING FOR WITHDRAWAL MED MANAGEMENT. NO W/E DC PLANNED. WILL RESUME PT/OT ORDERS WHEN PT APPROPRIATE.
--- NOTE | 2019-06-15 14:38 | NUR ---
MINIMAL PROGRESS TODAY. PALE, ASHEN. PRECEDEX INFUSING TO TOLERATE BIPAP, RR-29-32 HOWEVER IMPROVED FROM YESTERDAY. SB, PERIPHERAL IV'S X 2 STARTED, THEN CLINIMIX STARTED, HG-6.9- PRBC'S INFUSING. NPO, MARGINAL URINE OUTPUT. BROTHER AND SISTER IN LAW PRESENT, UPDATED ON PT STATUS.
--- NOTE | 2019-06-15 21:49 | NUR ---
PRECEDEX GTT TITRATED CHARTED. PT. INCREASINGLY RESTLESS AND TRYING TO PULL OFF BIPAP MASK. WILL CONTINUE TO MONITOR.
[2019-06-16] VITALS (39 sets, daily range): BP systolic 93–135; BP diastolic 44–65
[2019-06-16 04:48] LABS: HEMATOCRIT 25.1 % (42.0-52.0); HEMOGLOBIN 8.5 gm/dL (14.0-18.0); MCH 32.5 pg (26.0-34.0); MCHC 33.8 g/dL (28.0-37.0); MCV 95.9 fL (80.0-100.0); PLATELET COUNT 189 thou/uL (150-400); RBC 2.62 mil/uL (4.50-6.00); RDW 17.7 % (10.5-14.5); WBC 9.9 thou/uL (4.0-11.0)
[2019-06-16 05:00] LABS: ALBUMIN 1.6 g/dL (3.4-5.0); CALCIUM 7.7 mg/dL (8.5-10.1); CREATININE 0.8 mg/dL (0.7-1.3); POTASSIUM 3.8 mmol/L (3.5-5.1); TOTAL BILIRUBIN 0.6 mg/dL (<0.1-1.0); TOTAL PROTEIN 4.8 g/dL (6.4-8.2)
[2019-06-16 05:04] LABS: BE(vivo) -0.4 mmol/L (-2 to +3); HCO3 23.1 mmol/L (22.0-26.0); PCO2 33.4 mmHg (35.0-45.0); PO2 94.3 mmHg (80.0-100.0); pH 7.458 (7.360-7.450); sO2 97.6 % (92.0-98.0)
--- NOTE | 2019-06-16 05:28 | NUR ---
ASSESSMENTS AND VITAL SIGNS CHARTED. MEDICATION TITRATION CHARTED. PT. PROGRESSING TOWARDS GOALS. WILL CONTINUE TO MONITOR.
[2019-06-16 06:19] LABS: ABSOLUTE NEUTROPHILS 7.4 thou/uL (1.4-8.2)
[2019-06-16 06:20] LABS: ANISOCYTOSIS 1+
--- NOTE | 2019-06-16 09:13 | NUR ---
AT 0745 INITIATED SEDATION VACATION. AT 0845, LEFT MESSAGE ON 'S ANSWERING MACHINE FOR BRONCH TODAY. AWAITING RETURN CALL.
--- NOTE | 2019-06-16 11:41 | NUR ---
LEFT ANOTHER MESSAGE ON PHONE FOR REGARDING BRONCHOSCOPY CONSENT, AWAITING RETURN CALL. DR. HERRERA PERFORMING BRONCH PER MEDICAL NECESSITY. SEE PROCEDURE DOCUMENTATION FOR DETAILS. DURING BROCH RETURNED CALL, DISCUSSED RISK AND BENEFITS OF BRONCH, THEN TELEPHONE CONSENT WITH TWO RN'S OBTAINED. PRECEDEX 1.2 MCG/KG/HR INFUSED IMMEDIATELY PRIOR TO PROCEDURE, THEN DC'D IMMEDIATELY AFTER. BRONCH WELL TOLERATED. SPUTUM SENT TO LAB PER RT.
--- NOTE | 2019-06-16 19:15 | NUR ---
FAMILY PRESENT TO VISIT WITH PT. THEY PROVIDED SUPPORT AND TALKED WITH HIM FOR SEVERAL HOURS. PT TALKING MORE, RESP RATE IMPROVING, URINE OUTPUT INCREASED. PT SLOWLY PROGRESSING.
[2019-06-17] VITALS (31 sets, daily range): BP systolic 94–127; BP diastolic 42–64
--- NOTE | 2019-06-17 00:40 | NUR ---
PT. INCREASINGLY FIDGETY, PULLING AT RESTRAINTS, AND TRYING TO TAKE BIPAP MASK OFF. DIVERSIONAL ACTIVITIES WERE GIVEN. PT. STARTED BACK ON PRECEDEX. TITRATION CHARTED, WILL CONTINUE TO MONITOR.
[2019-06-17 05:28] LABS: HEMATOCRIT 22.7 % (42.0-52.0); HEMOGLOBIN 7.6 gm/dL (14.0-18.0); MCH 31.9 pg (26.0-34.0); MCHC 33.5 g/dL (28.0-37.0); MCV 95.3 fL (80.0-100.0); RBC 2.38 mil/uL (4.50-6.00); RDW 17.1 % (10.5-14.5); WBC 8.6 thou/uL (4.0-11.0)
[2019-06-17 05:38] LABS: CREATININE 0.8 mg/dL (0.7-1.3); POTASSIUM 3.7 mmol/L (3.5-5.1)
--- NOTE | 2019-06-17 14:45 | NUR ---
ALBUMIN GIVEN, THEN FOLLOWED BY LASIX, LARGE AMOUNT URINE OUTPUT. BIPAP OFF, PLACED ON 6L/NC, WELL TOLERATED. NO SPUTUM OR COUGH, BED CONTINUES IN ROTATION MODE. NPO TO PREVENT ASPIRATION. FAMILY IN ROOM PROVIDING SUPPORT TO PT. PROGRESSING.
[2019-06-18] VITALS (24 sets, daily range): BP systolic 97–131; BP diastolic 44–64
[2019-06-18 09:42] LABS: HEMATOCRIT 25.8 % (42.0-52.0); HEMOGLOBIN 8.8 gm/dL (14.0-18.0); MCH 32.4 pg (26.0-34.0); MCHC 33.9 g/dL (28.0-37.0); MCV 95.3 fL (80.0-100.0); PLATELET COUNT 213 thou/uL (150-400); RBC 2.71 mil/uL (4.50-6.00); RDW 17.3 % (10.5-14.5); WBC 10.1 thou/uL (4.0-11.0)
[2019-06-18 09:51] LABS: POTASSIUM 3.6 mmol/L (3.5-5.1)
[2019-06-18 10:26] LABS: ABSOLUTE NEUTROPHILS 8.7 thou/uL (1.4-8.2); METAMYELOCYTES 1 %; NUCLEATED RBCS 1 /100WBC; PLATELET ESTIMATE NORMAL
--- NOTE | 2019-06-18 17:29 | NUR ---
ASSUMED CARE OF PT AT 0645. CONFUSED ABOUT SITUATION. WANTS TO GO HOME, DOES NOT UNDERSTAND WHY HE MUST STAY AT THE HOSPITAL. WORKED WITH THERAPY, UP TO CHAIR. ST APPROVE FOR HONEY THICK OR YOGURT FOR MEDS. CONTINUE PPN.
--- NOTE | 2019-06-18 19:52 | NUR ---
VASCULAR ACCESS TEAM CONSULTED TO REPLACE ML THAT PT PULLED OUT ALONG WITH PIV. 4FR POWER MIDLINE INSERTED INTO ANTON BASILIC,TRIMMED TO 14CM INSERTED TO 0CM PER HOSPITAL P & P. BRISK BR,PT TOLERATED WELL. ML RELEASED TO BAM CADE PER PROTOCOL FOR IMMEDIATE USE.
[2019-06-19] VITALS (16 sets, daily range): BP systolic 89–130; BP diastolic 40–65
--- NOTE | 2019-06-19 02:39 | NUR ---
REPORT CALLED TO JOSE CADE ON . PATIENT COMPLETED SECOND BATH FOR FLEA INFESTATION. BELONGINGS REMAIN DOUBLE BAGGED. DENIES COMPLAINTS OF PAIN THIS SHIFT. REMAINS WITH SHORTNESS OF AIR WITH ACITIVITY ON 5L/NC. TRANSFERED PER WHEELCHAIR WITH BELONGINGS. WORKING ON GOALS AND PLAN OF CARE FOR NOC. CONTINUE TO ASSES CLOSELY.
--- NOTE | 2019-06-19 04:37 | NUR ---
SLEPT PART OF SHIFT. REMAINS CALM AND COOPERATIVE. REMAINS ORIENTED TO SELF. STATES IS IN [place] TIME AND THE NEXT [facility]. DOES SAY IT IS BUT YEAR IS 1919. UNAWARE OF BEING IN HOSPITAL OR REASON WHY. WORRIED ABOUT HIS DOGS. REASSURED THAT IS TAKING CARE OF THEM. REORIENT PRN. WORKING ON GOALS AND PLAN OF CARE FOR NOC. PROGRESSING SLOWLY TOWARDS DISCHARGE GOALS. HAD 2 SMALL SOFT FORMED DARK BROWN/GREEN STOOLS THIS SHIFT. NO VISIBLE BLOOD NOTED. CONTINUE TO ASSES CLOSELY.
[2019-06-19 05:12] LABS: HEMATOCRIT 24.8 % (42.0-52.0); HEMOGLOBIN 8.1 gm/dL (14.0-18.0); MCH 31.8 pg (26.0-34.0); MCHC 32.9 g/dL (28.0-37.0); MCV 96.6 fL (80.0-100.0); RBC 2.56 mil/uL (4.50-6.00); RDW 17.4 % (10.5-14.5); WBC 10.4 thou/uL (4.0-11.0)
[2019-06-19 05:15] LABS: CALCIUM 8.5 mg/dL (8.5-10.1); CREATININE 0.9 mg/dL (0.7-1.3); POTASSIUM 3.9 mmol/L (3.5-5.1)
--- NOTE | 2019-06-19 14:05 | NUR ---
ASSUMED CARE OF PT AT 0700 THIS SHIFT. PT HAS BEEN CONFUSED THIS SHIFT. PT WAS ABLE TO ANSER WITH NAME THIS MORNING. PT WORKED WITH PHYSICAL AND OCCUPATIONAL THERAPY, HOWEVER PT'S SATs DROPPED TO MID 80, AND PT BECAME MINIMALLY RESPONSIVE WHEN IN CHAIR. AFTER GETTING PT BACK TO BED, PT RCOVERED SLOWLY, HOWEVER WAS MORE CONFUSED, UNABLE TO SAY HIS NAME. PT HAS BEEN AGITATED, GUARDING HIS HIP AND GRUNTING, PAIN WAS ADDRESSED. PHYSICIANS ARE AWARE OF PT'S STATUS. PT IS CURRENTLY RESTING COMFORTABLY IN ROOM.
--- NOTE | 2019-06-19 16:21 | NUR ---
Called and left message. Brother Ed arrived. Sp with brother regarding post acute care and reviewed [facility] list. He reports he plans to discuss with his . She has helped his other brothers. He is of a family of 12 with 9 boys. His has helped with plans for 4 of his brothers who had cancer. He has casemgt number to call with facilties with referrals.
[2019-06-20] VITALS (25 sets, daily range): BP systolic 86–125; BP diastolic 34–60
--- NOTE | 2019-06-20 04:34 | NUR ---
PATIENT ALERT TO SELF AND SITUATION ONLY. ON 5L NASAL CANNULA. SINUS RHYTHM ON SPECIAL PROJECTS COORDINATOR. RICK PATENT AND DRAINING. PPN FOR NUTRITION. RIGHT HIP CARLOS INTACT. PATIENT COMPLAINED OF MINIMAL DISCOMFORT. PLAN OF CARE DISCUSSED WITH PATIENT AND SPOUSE. PATIENT RESTLESS OVER NIGHT. NO SIGNS OF ACUTE DISTRESS NOTED AT THIS TIME. WILL CONTINUE TO MONITOR.
[2019-06-20 04:43] LABS: CALCIUM 8.6 mg/dL (8.5-10.1); CREATININE 0.9 mg/dL (0.7-1.3); POTASSIUM 4.5 mmol/L (3.5-5.1)
--- NOTE | 2019-06-20 09:19 | NUR ---
If pt does not pass swallow eval, consider place a dobhoff and start jevity 1.5 at 50ml/hr goal. If unable to place dobhoff, then recommend transition from PPN to TPN goal of 75ml/hr with pharmacy to manage.
--- NOTE | 2019-06-20 10:45 | NUR ---
Pt to chair at bedside with PT. Pt tolerated well. Denies pain after Tylenol given po. VSS. Pt remains up in chair watching TV in NAD.
--- NOTE | 2019-06-20 12:52 | NUR ---
Pt doing great eating pureed lunch. Ate 90% with assistance. Pt stated food was delicious!
--- NOTE | 2019-06-20 13:37 | NUR ---
Met with brother Ed and MARLEE of patient. [facility] post acute care list reviewed. Family chose 5 facilities for review. Firt 2 on list is [facility] and [facility]. Patient restraint free since 10:00 this am. Plan to fax referrals for review. Left message with and alerted to brother casemgt has called to update.
--- NOTE | 2019-06-20 15:54 | NUR ---
FAXED REFERRAL TO [facility] SPOKE WITH CRYSTAL IN ADM SHE RECEIVED REFERRAL AND WILL REVIEW. DCP TO FOLLOW.
--- NOTE | 2019-06-20 19:01 | NUR ---
Shift summary: Pt had a great day. Out of restraints since 10am. Up in chair x 3 hrs. Pain controlled on regular strength tylenol. VSS. SR w/ PAC. Afebrile. O2 5L NC. Lungs diminished. BS active. Tolerated pureed diet. PPN at 125ml/hr. Stools x 4 today, incontinent. Ngo with 2050ml clear yellow urine. Report to oncoming shift. Noted that patient becoming more impulsive and restless this evening. Needing almost constant redirection. Bed alarm on. May need to replace soft wrist restraints for pt safety. Plan of care reviewed and updated as able. Pt making slow progress towards discharge goals.
[2019-06-21] VITALS (18 sets, daily range): BP systolic 100–135; BP diastolic 41–56
[2019-06-21 05:59] LABS: HEMATOCRIT 26.4 % (42.0-52.0); HEMOGLOBIN 8.6 gm/dL (14.0-18.0); MCH 31.5 pg (26.0-34.0); MCHC 32.5 g/dL (28.0-37.0); MCV 96.8 fL (80.0-100.0); RBC 2.73 mil/uL (4.50-6.00); WBC 8.7 thou/uL (4.0-11.0)
--- NOTE | 2019-06-21 06:00 | NUR ---
PT AWAKE MOST OF NOCT. RIGHT HIP DRESSING DRY AND INTACT. AREA REMAINS VERY BRUISED. ATIVAN 0.5 MG GIVEN EARLIER FOR AGITATION AND NICOTINE PATCH. HAD ONE MODERATE STOOL THIS AM. PPN AT 125 CC/HR. BATHED. JC CONT TO MONITOR.
[2019-06-21 06:23] LABS: CALCIUM 8.8 mg/dL (8.5-10.1); CREATININE 0.9 mg/dL (0.7-1.3); POTASSIUM 5.6 mmol/L (3.5-5.1)
--- NOTE | 2019-06-21 14:40 | NUR ---
FAXED REFERRAL TO [facility] SPOKE WITH HAILY IN ADM SHE RECEIVED REFERRAL AND DENIED DUE TO HIS ALCOHOLISM. FAXED REFERRAL TO [facility] SPOKE WITH CHRIS IN ADM SHE RECEIVED REFERRAL AND THEY WILL REVIEW. DCP TO FOLLOW.
--- NOTE | 2019-06-21 17:00 | NUR ---
Official Greeter visited at bedside with the pt's sister in law Erin as well as his brother Ed via phone. Message left for his Jaleesa. All parties updated on dc planning efforts. [facility], [facility], and [facility] have declined. [facility] and [facility] would like to reeval once therapy able to work with the pt. Family aware that the pt may likely need ltc after skilled rehab;therefore he may benefit from snf in [facility] vs [place]. Ed has spoken to Jaleesa and she is aware that she will need to do admission paperwork as well as possible medicaid application for ltc. The pt's pcp is at the [facility] and he may be service connected. Ed reports that Jaleesa was going to check into this. Message left for the transitional nurse at the [facility] to check his status. Call back from Jaleesa rec'd via voice mail. Will f/u with her tomorrow.Nursing updated. Pt may transfer out of the ICU soon. Will initiate referrals to [facility], as well as [facility] as they may be options for both short term rehab and ltc if needed.
--- NOTE | 2019-06-21 17:18 | NUR ---
Assumed care this a.m. patient noted to be extremely drowsy needed constant reinforcement to follow simple commands. Pain appears controlled after repositioning; restful. VSS, see flowsheet. Remains sinus rhythm. Respirations easy and unlabored; no acute distress noted. Unable to successfully wean O2. Intermittent periods of desaturation 86-88. O2 2-4 L throughout the day. Continue to wean as tolerated. More alert and responsive this afternoon. PT/OT/ST following. Up to chair max assist. Profoundly weak. Tolerated chair activity well. Activity encouraged as tolerated. Failed PO thickened liquids; suspected aspiration. Pureed only; total feed assist. Ngo catheter patent to gravity; large volume. Right surgical hip stable; eccymotic. Family visitors this afternoon. Continued progression towards current plan of care goals. No acute events to report. Anticpated discharge from ICU when bed becomes available. SNIF status post hospitalization.
[2019-06-22 00:03] VITALS: BP 99/44
[2019-06-22 04:00] VITALS: BP 105/58
[2019-06-22 05:52] LABS: HEMATOCRIT 25.5 % (42.0-52.0); HEMOGLOBIN 8.4 gm/dL (14.0-18.0); MCH 31.9 pg (26.0-34.0); MCHC 32.9 g/dL (28.0-37.0); MCV 96.8 fL (80.0-100.0); RBC 2.64 mil/uL (4.50-6.00); RDW 17.4 % (10.5-14.5); WBC 7.9 thou/uL (4.0-11.0)
[2019-06-22 08:20] VITALS: BP 106/70
--- NOTE | 2019-06-22 09:50 | NUR ---
REC REPORT FROM ICU NURSE FOR PT'S TRANSFER AT 0750, PT IS ALERT TO [facility], SCOWLED WHEN ASKED PRESIDENT, [facility], HAS NOT TRIED TO GET OOB YET IS PLUCKING AROUND AT N/C. ASKED RUNNER TO HELP FEED HIM, SHE STATES HE WAS FEEDING HIMSELF, UNDERSTOOD A SECOND NUTRITIONAL EVAL. PT IS BURPING. HAS A GOOD APPETITE FOR THE SMALL AMT OF FOOD THAT'S ON HIS TRAY. NO LIQUIDS. YET TRAY HAD LIQUIDS. WILL INVESTIGATE AND ENSURE THIS ORDER IS ON DIETARY
[2019-06-22 10:09] LABS: CALCIUM 8.9 mg/dL (8.5-10.1); CREATININE 1.1 mg/dL (0.7-1.3)
--- NOTE | 2019-06-22 11:47 | NUR ---
FAXED REFERRAL TO [facility] SPOKE WITH CRYSTAL IN ADM SHE RECEIVED REFERRAL AND WILL VISIT PT AT THE BEDSIDE THIS AM. SW FOUND OUT PT IS A AND [facility]. SO CRYSTAL IS THE [facility] FOR [facility] AND SHE WILL FORWARD REFERRAL TO [facility]. DCP TO FOLLOW.
--- NOTE | 2019-06-22 12:06 | NUR ---
[facility] HAS NOTIFIED ADMITTING THAT THEY ARE COVERING THE PT'S HOSPITAL STAY. UR NURSE FAXING CLINICAL ALONG WITH SNF RECOMMENDATION. [facility] L[facility] REVIEWED WITH SISTER IN LAW [facility] MAY BE THE BEST OPTION D/T LOCATION AND OPTION FOR LTC IF NEEDED. [facility] INDICATES THAT SHE HAS TALKED WITH PT'S SPOUSE AND CAN TAKE HER OUT TO TOUR THIS AFTERNOON. THE [facility] WAS HERE TO TALK WITH THE PT. THEY CAN ACCEPT AND WILL CHECK BED AVAILABILITY AND VA CONTRACT/AUTH. THIS FACILITY MAY BE ABLE TO ACCEPT THE PT SHELTER MEDICAID PENDING WELL IF HE IS NOT ABLE TO RETURN HOME AFTER HIS REHAB. PT SITTING UP IN THE CHAIR TODAY AND CONVERSANT. ORIENTED TO PERSON AND KNOWS HE IS IN THE HOSPITAL. HE THINKS HE IS IN [place]. HE WORKED WITH PT THIS AM AND IS AWAITING ST [facility] TO CLARIFY DIET RECOMMENDATIONS. DC MACHINIST BENCH TO FAX ANY ADDITIONAL UPDATES TO [facility]. WILL FOLLOW.
[2019-06-22 12:25] VITALS: BP 89/44
[2019-06-22 16:25] VITALS: BP 87/48
[2019-06-22 20:00] VITALS: BP 90/60
[2019-06-23 04:00] VITALS: BP 113/49
[2019-06-23 05:13] LABS: HEMATOCRIT 25.7 % (42.0-52.0); HEMOGLOBIN 8.3 gm/dL (14.0-18.0); MCH 31.4 pg (26.0-34.0); MCHC 32.4 g/dL (28.0-37.0); MCV 96.8 fL (80.0-100.0); RBC 2.65 mil/uL (4.50-6.00); RDW 17.6 % (10.5-14.5); WBC 9.9 thou/uL (4.0-11.0)
[2019-06-23 05:20] LABS: CALCIUM 8.9 mg/dL (8.5-10.1); CREATININE 1.1 mg/dL (0.7-1.3); POTASSIUM 4.8 mmol/L (3.5-5.1)
--- NOTE | 2019-06-23 05:41 | NUR ---
ALERT AND ORIENTED.FORGETFUL.WAS SITTING ON A RECLINER AT SHIFT CHANGE.ABLE TO ANSWER QUESTIONS.DENIES PAIN.SOB IS ON AND OFF.RECEIVES BREATHING TREATMENT.RICK TO DD.NO BM THIS SHIFT.CUURENTLY ON O2 4.5 L NC.MONITOR SHOWS SR.IVF INFUSING.WILL CONTINUE POC.
[2019-06-23 08:17] VITALS: BP 101/48
--- NOTE | 2019-06-23 09:03 | NUR ---
ASSUMED CARE OF PT APPROX 0715, IS RESTLESS, PULLING OFF LEADS, TELE RUNNER HAS HAD TO PLACE TWICE AND STRONGLY ENCOURAGED HIM TO STP AND HE FUSSED AT HER FOR SOUNDING ABRUPT. I ENCOURAGED HIM TO LEAVE IT ALL ALONE. HE ASKED FOR ME TO CRAWL IN TO BED WITH HIM, WASN'T COLD, DECLINED WARM BLANKET. WANTS TO SLEEP. HAS BEEN ASKED TWICE ABOUT SITTING UP AND EATING AND STATES, 'LEAVE ME ALONE', IF HE CONTINUES W/RESTLESSNESS AND PULLING AT LINES WILL ADM ANTIANXIETY MEDICATION. TURNED ON TELE FOR HIM AND PLACED CALL LIGHT CLOSE BY. IF HIS AGITATION INCREASES WILL CALL SISTER IN LAW TO SEE IF SHE WANTS TO POSSIBLY VISIT W/HIM. WILL CONTINUE TO MONITOR
--- NOTE | 2019-06-23 11:24 | NUR ---
SOCIAL WORK/CASE MANAGEMENT: CALLED PT'S SPOUSE, ALEXIS - NUMBER ON RECORD - THEY'D CALLED CM WHO'S NOT IN THE FACILITY TODAY, TO LET THEM HAVE MY DIRECT PHONE NUMBER SO THEY COULD KEEP IN TOUCH RE: DISCHARGE AND WHICH FACILITY THEY DESIRE [facility] STATES THEY HAVE AUTH FOR THE [facility], IF [facility] IS CHOSEN D/C WOULD WAIT UNTIL TUESDAY OR TUESDAY. NO ANSWER. WILL TRY AGAIN LATER
[2019-06-23 16:35] VITALS: BP 130/55
[2019-06-23 19:45] VITALS: BP 115/44
[2019-06-24 00:16] VITALS: BP 102/43
--- NOTE | 2019-06-24 03:38 | NUR ---
RECEIVED REPORT FROM BHUMIKA CADE.ASSUMED CARE AT 2330.DENIES PAIN.REPOSITIONED Q2 HOURS AND NEEDED.RICK TO DD.POSSIBLE DISCHARGE TO A FACILITY TODAY.MONITOR SHOWS SR.WILL CONTINUE POC.
[2019-06-24 04:45] VITALS: BP 102/44
[2019-06-24 07:38] VITALS: BP 113/56
[2019-06-24 11:39] VITALS: BP 108/43
[2019-06-24 16:26] VITALS: BP 104/48
--- NOTE | 2019-06-24 18:22 | NUR ---
ASSUMED CARE OF PT AT SHIFT CHANGE. ASSESSMENTS CHARTED. MEDS GIVEN PER MAR. VSS. ALERT TO SELF AND SOMETIMES PLACE. RICK IN PLACE. X2 ASSIST. NO C/O PAIN. PT WEANED TO 2L O2 WITH NO C/O SOA. DIET REMAINS PUDDING THICK PT COUGHS WITH SIPS OF WATER WITH MEDS. GIVING PO MEDS WITH PUDDING. WILL CONTINUE TO MONITOR AND FOLLOW POCO.
[2019-06-24 19:41] VITALS: BP 108/48
[2019-06-25 04:28] VITALS: BP 102/53
[2019-06-25 06:31] LABS: CALCIUM 8.7 mg/dL (8.5-10.1)
[2019-06-25 07:30] VITALS: BP 115/45
--- NOTE | 2019-06-25 07:37 | NUR ---
PT RESTING QUIETLY IN BED THRU THE NOC, REPOSTIONED SEVERAL TIMES, IV INFUSING,VSS, PRN PAIN MEDS GIVEN AT HS FOR HIP AND BACK PAIN, REPORT GIVEN TO NEXT SHIFT TO CON'T WITH PPOC.
[2019-06-25 11:14] VITALS: BP 106/45
[2019-06-25] MEDS ORDERED: XARELTO10 MG PO (13:43)
[2019-06-25] MEDS ORDERED: ACETAMINOPHEN325 M1 PO (13:43)
[2019-06-25] MEDS ORDERED: PEPCID20 MG PO (13:43)
[2019-06-25] MEDS ORDERED: IPRAT-ALBUT 0.5-3 ML INH (13:43)
--- NOTE | 2019-06-25 15:01 | NUR ---
PT DISCHARGING TODAY TO [facility] FAXED DC ORDERS/SUMMARY TO FACILITY SPOKE WITH CRYSTAL IN ADM SHE RECEIVED DC ORDERS AND ARRANGED TRANSPORT BY [facility] FOR [phone] TODAY. NOTIFIED PT'S (ALEXIS) AND BROTHER (ED) OF DISCHARGE AND TIME OF TRANSPORT. UNIT NOTIFIED AND CHART COPY PER US. RN TO CALL REPORT TO [phone].
[2019-06-25 15:13] VITALS: BP 96/46
--- NOTE | 2019-06-25 17:53 | NUR ---
VSS REMAINS NSR BP STABLE. ALERTAND ORINTED TO NAME PLACE SITUATION, LESS CONFUSION TODAY. UP TO CHAIR WITH PT AND RETROPULSES BUT STEADY WITH WALKER AND MAX ASSIST. APPETITE GOOD TODAY , PT FED SELF 75% OF MEALS., NO COUGHING OBSERVED. RICK REMOVED, WILL WATCH FOR URINE OUTPUT. WILL CONTINUE TO MONITER AND CARE FOR PT PER PLANOF CARE
[2019-06-25 19:54] VITALS: BP 130/62
--- NOTE | 2019-06-26 04:32 | NUR ---
ASSUMED PT CARE AT 1900 WITH NO SIGN OF DISTRESS NOTED IN PT. PT IS ALERT, BUT CONFUSED. PT IS LAYING IN BED. NO FAMILY AT BEDSIDE. FALL PRECAUTION IN PLACE. ASSESSMENT COMPLETED AND CHARTED. SCHEDULED MEDS ADMINISTERED TO PT. VITAL SIGNS STABLE. PAIN MED ADMINISTERED REQUESTED. DENIES ANY FURTHER NEEDS AT THIS TIME.
[2019-06-26 04:45] VITALS: BP 118/51
[2019-06-26 08:00] VITALS: BP 100/39
--- NOTE | 2019-06-26 09:37 | NUR ---
Last evening approx 5pm [facility] admissions called to report they believed they had auth but did not. They cancelled transport until can rec auth. They notified family. Cas[facility] notified Rn and phys. [facility] to arrange transport and update on auth once rec. cont to follow.
--- NOTE | 2019-06-26 10:12 | NUR ---
No menus were saved for day 1 calorie count, however pt eating much better, 75% all three meals yesterday and 100% this am. Not fond of magic cups or ensure pudding but will take with meds per RN. Discharge possibly soon. No new nutrition interventions.
--- NOTE | 2019-06-26 13:14 | NUR ---
patient has rec auth from [facility] for post acute care per Stephanie at [place]. van for 1300 notified brother ED and . Orders faxed and chart copied no further needs.
== END 2019-06-26 15:18 | DRG 480 ==
LOC: ER 13:38 → 2N 15:00 → EROBS 15:24 → 2N 15:24 → ICU 06-14 10:10 → 2N 06-22 07:58
PROVIDERS: Emergency Medicine; Hospitalist; Internal Medicine Pulmonary Disease; Nurse Practitioner Acute Care; Orthopaedic Surgery Sports Medicine; Pediatrics; ADMIT Internal Medicine
PROC: 0QS606Z Reposition Right Upper Femur with Intramedullary Internal Fixation Device, Open Approach (ICD-10-PCS; principal; 2019-06-10)
PROC: 30233N1 Transfusion of Nonautologous Red Blood Cells into Peripheral Vein, Percutaneous Approach (ICD-10-PCS; 2019-06-12)
PROC: 5A09357 Assistance with Respiratory Ventilation, Less than 24 Consecutive Hours, Continuous Positive Airway Pressure (ICD-10-PCS; 2019-06-14)
PROC: 05HB33Z Insertion of Infusion Device into Right Basilic Vein, Percutaneous Approach (ICD-10-PCS; 2019-06-14)
PROC: 5A09357 Assistance with Respiratory Ventilation, Less than 24 Consecutive Hours, Continuous Positive Airway Pressure (ICD-10-PCS; 2019-06-15)
PROC: 0B9F8ZX Drainage of Right Lower Lung Lobe, Via Natural or Artificial Opening Endoscopic, Diagnostic (ICD-10-PCS; 2019-06-16)
PROC: 5A09357 Assistance with Respiratory Ventilation, Less than 24 Consecutive Hours, Continuous Positive Airway Pressure (ICD-10-PCS; 2019-06-16)
PROC: 5A09357 Assistance with Respiratory Ventilation, Less than 24 Consecutive Hours, Continuous Positive Airway Pressure (ICD-10-PCS; 2019-06-17)
PROC: 05HC33Z Insertion of Infusion Device into Left Basilic Vein, Percutaneous Approach (ICD-10-PCS; 2019-06-18)
DX: S72.141A Displaced intertrochanteric fracture of right femur, initial encounter for closed fracture (principal); E43 Unspecified severe protein-calorie malnutrition; J96.01 Acute respiratory failure with hypoxia; J18.9 Pneumonia, unspecified organism; M62.82 Rhabdomyolysis; Z68.1 Body mass index [BMI] 19.9 or less, adult; D62 Acute posthemorrhagic anemia; F10.239 Alcohol dependence with withdrawal, unspecified; T17.590A Other foreign object in bronchus causing asphyxiation, initial encounter; J98.11 Atelectasis; G93.40 Encephalopathy, unspecified; I10 Essential (primary) hypertension; J44.9 Chronic obstructive pulmonary disease, unspecified; I25.10 Atherosclerotic heart disease of native coronary artery without angina pectoris; G89.29 Other chronic pain; M54.5 Low back pain; E78.5 Hyperlipidemia, unspecified; E53.8 Deficiency of other specified B group vitamins; D72.829 Elevated white blood cell count, unspecified; X58.XXXA Exposure to other specified factors, initial encounter; J84.10 Pulmonary fibrosis, unspecified; F17.210 Nicotine dependence, cigarettes, uncomplicated; E78.00 Pure hypercholesterolemia, unspecified; E03.9 Hypothyroidism, unspecified; W10.8XXA Fall (on) (from) other stairs and steps, initial encounter; Y93.89 Activity, other specified; Y92.098 Other place in other non-institutional residence as the place of occurrence of the external cause; Y99.8 Other external cause status; Z90.49 Acquired absence of other specified parts of digestive tract; Z79.1 Long term (current) use of non-steroidal anti-inflammatories (NSAID); Z79.899 Other long term (current) drug therapy; Z85.12 Personal history of malignant neoplasm of trachea; Z93.1 Gastrostomy status; Z23 Encounter for immunization; Z92.21 Personal history of antineoplastic chemotherapy; Z92.3 Personal history of irradiation; Z93.0 Tracheostomy status; Z82.49 Family history of ischemic heart disease and other diseases of the circulatory system; Z80.9 Family history of malignant neoplasm, unspecified
CPT/HCPCS: 10078; 10081; 27000; 50010; 50101; 50386; 50455; 51412; 51538; 52304; 55445; 56525; 57092; 70005

== ENCOUNTER 2019-10-01 00:54 | Inpatient (IN) | payer OTHER ==
[2019-10-01] VITALS (12 sets, daily range): BP systolic 86–130; BP diastolic 42–64
[~2019-10-01] VITALS: Ht 180.3 cm; Wt 54.5 kg
[~2019-10-01 00:54] MED LIST changes: +ACCUNEB SO1.25 MG/1 INH; +ACETAMINOPHEN325 M1 PO; +COMBIVENT INH; +IPRAT-ALBUT 0.5-3 ML INH; +PEPCID20 MG PO; +SYMBICORT160 MCG/4. INH; +XARELTO10 MG PO
[2019-10-01 02:02] LABS: BASOPHILS 0.8 % (0.0-2.0); RBC 1.76 mil/uL (4.50-6.00); WBC 9.9 thou/uL (4.0-11.0)
[2019-10-01 02:03] LABS: ABSOLUTE NEUTROPHILS 7.8 thou/uL (1.4-8.2); EOSINOPHILS 0.8 % (0.0-3.0); LYMPHOCYTES 11.6 % (24.0-44.0); MCH 26.9 pg (26.0-34.0); MCHC 31.9 g/dL (28.0-37.0); MCV 84.4 fL (80.0-100.0); MONOCYTES 8.3 % (1.0-8.0); PLATELET COUNT 301 thou/uL (150-400); POLYS 78.5 % (36.0-66.0); RDW 17.6 % (10.5-14.5)
[2019-10-01 02:09] LABS: HEMATOCRIT 14.9 % (42.0-52.0); HEMOGLOBIN 4.8 gm/dL (14.0-18.0)
[2019-10-01 02:29] LABS: CALCIUM 9.5 mg/dL (8.5-10.1); CREATININE 1.2 mg/dL (0.7-1.3); POTASSIUM 4.3 mmol/L (3.5-5.1)
[2019-10-01] MEDS ORDERED: SLOW FE142 MG PO (04:19)
[2019-10-01 10:28] LABS: DIRECT BILIRUBIN < 0.1 mg/dL (<0.1-0.2); SGOT 22 U/L (15-37); SGPT 12 U/L (30-65); TOTAL BILIRUBIN < 0.1 mg/dL (<0.1-1.0)
[2019-10-01 11:25] LABS: HEMATOCRIT 20.1 % (42.0-52.0)
[2019-10-01 11:38] LABS: HEMOGLOBIN 6.4 gm/dL (14.0-18.0)
[2019-10-01 15:52] LABS: HEMATOCRIT 25.1 % (42.0-52.0); MCH 28.5 pg (26.0-34.0); MCV 88.8 fL (80.0-100.0); RBC 2.83 mil/uL (4.50-6.00); RDW 18.3 % (10.5-14.5); WBC 23.3 thou/uL (4.0-11.0)
[2019-10-01 19:19] LABS: FOLIC ACID 5.1 ng/mL (8.6-58.9); TSH 9.069 uIU/mL (0.358-3.740)
[2019-10-01 22:58] LABS: HEMATOCRIT 20.8 % (42.0-52.0); HEMOGLOBIN 6.8 gm/dL (14.0-18.0)
[2019-10-02 05:30] VITALS: BP 89/43
[2019-10-02 05:40] LABS: URINE BILIRUBIN NEGATIVE (Negative); URINE BLOOD NEGATIVE (Negative); URINE CLARITY CLEAR; URINE COLOR YELLOW; URINE GLUCOSE-RANDOM* NEGATIVE (Negative); URINE KETONES NEGATIVE (Negative); URINE LEUKOCYTES-REFLEX NEGATIVE (Negative); URINE NITRITE-REFLEX NEGATIVE (Negative); URINE PROTEIN (DIPSTICK) NEGATIVE (Negative); URINE UROBILINOGEN 0.2 E.U./dl (0.2-1.0)
[2019-10-02 07:30] LABS: MCH 28.9 pg (26.0-34.0)
[2019-10-02 07:32] LABS: ABSOLUTE NEUTROPHILS 9.6 thou/uL (1.4-8.2); BASOPHILS 0.3 % (0.0-2.0); EOSINOPHILS 0.4 % (0.0-3.0); MCHC 32.6 g/dL (28.0-37.0); MCV 88.6 fL (80.0-100.0); MONOCYTES 9.4 % (1.0-8.0); PLATELET COUNT 179 thou/uL (150-400); POLYS 80.9 % (36.0-66.0); RBC 2.12 mil/uL (4.50-6.00); RDW 17.9 % (10.5-14.5); WBC 11.8 thou/uL (4.0-11.0)
[2019-10-02 07:34] LABS: HEMATOCRIT 18.8 % (42.0-52.0); HEMOGLOBIN 6.1 gm/dL (14.0-18.0)
[2019-10-02 07:39] LABS: CALCIUM 7.7 mg/dL (8.5-10.1); MAGNESIUM 1.6 mg/dL (1.8-2.4); POTASSIUM 3.6 mmol/L (3.5-5.1)
[2019-10-02 08:00] VITALS: BP 95/52
--- NOTE | 2019-10-02 09:54 | EKG ---
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 : 1945 Requested By: Juan Jay Order Number: [id number] MD: Tung Hernandez Measurements Intervals Distant Rate: 93 P: 118 TX: 174 QRS: 57 QRSD: 95 T: 123 QT: 370 QTc: 461 Interpretive Statements Sinus rhythm Borderline repolarization abnormality Compared to ECG 06/13/2019 19:10:32 No significant changes Electronically Signed On 10-02-2019 9:54:11 TECHNICAL SERVICES ASSISTANT by Tung Hernandez [email or web address] <ELECTRONICALLY SIGNED> By: Tung Hernandez MD, [facility] 10/02/19 0954 0110 0110 Tung Hernandez MD, [facility] /EPI
[2019-10-02 12:00] VITALS: BP 103/51
[2019-10-02 14:03] VITALS: BP 98/47
--- NOTE | 2019-10-02 14:05 | P ---
[facility] [place] [address] PROCEDURE REPORT Name: GHULAMNEELAM Room #: 218-P [facility] IN ..#: [id number] Admission: 10/01/19 Attend Phys: Zachary Aguila MD Discharge: Date of : 41 Report #: [id number] THIS REPORT FOR: //name// CC: Rony Goldman DATE OF SERVICE: 10/01/2019 INPATIENT UPPER ENDOSCOPY REPORT BRIEF HISTORY: The patient is a 74-year-old male with history of multiple medical problems, who was admitted to [facility] with a GI bleeding with a hemoglobin of 4.8, platelet count of 301,000, and white count of 9.9. He had a BUN of 60 and a creatinine of 1.2. He is at a rehab facility and reportedly had a coffee-ground emesis. He has a history of an ENT cancer many years ago. He has also had multiple ERCPs, sphincterotomy, and stone extractions. PREOPERATIVE DIAGNOSIS: Upper gastrointestinal bleeding. POSTOPERATIVE DIAGNOSES: 1. 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 2. Diffuse gastritis. 3. Small hiatus hernia. MEDICATIONS: Deep sedation with propofol per anesthesia. SPECIMEN: None. ESTIMATED BLOOD LOSS: None. PROCEDURE: EGD with hemostasis. FINDINGS: Prior to propofol sedation, the procedure of upper endoscopy was discussed with the patient as well as potential risks and its complications. He indicates he understands and desire that we proceed. DESCRIPTION OF PROCEDURE: With the patient in left lateral decubitus position, an Olympus video endoscope was inserted in the cervical esophagus and advanced under direct vision throughout the esophagus. There was no blood within the esophagus. It was also noted that patient does have a history of heavy alcohol consumption in the past and gastric varices were not seen. A very small, less than 2 cm sliding type hiatus hernia was seen. The mucosa in the hernia was unremarkable. No blood was seen. The scope was advanced in the stomach and was examined on the end view as well as retroflexed views. There was a pattern of [facility] [address] [place] [address] PROCEDURE REPORT Name: JORDAN PARMAR Room #: 218-P [facility] IN M.R.#: [id number] Admission: 10/01/19 Attend Phys: Zachary Aguila MD Discharge: Date of : 41 Report #: [id number] diffuse gastritis and a significant amount of blood was not seen in the stomach. Upon retroflexion, the hiatus hernia was seen. In the distal stomach, right around the area of the pylorus, there was a small amount of dark red blood material. It was a very scant amount. The scope was advanced across the pylorus and examination of duodenal bulb and the second portion of duodenum revealed it to be coated with bright red blood. We began irrigating the duodenum as best we could. We could not see a definite bleeding site, but blood continued to reappear in the second portion of duodenum. It was felt to be behind one of the folds in the second portion of duodenum. We manipulated the scope and we could not see behind the fold. The red blood continued to appear. It was not shooting or spurting, but there was a constant ooze. After a period of time, we exchanged the standard upper endoscope for a therapeutic scope. We did get a different angle and a different view of the duodenum, but still could not see the exact site of bleeding. At this point, it was felt that we would need a side-viewing scope to see this area. We then inserted a side-viewing scope and advanced it into the duodenum and the sphincterotomized papilla was seen. It was wide open. We could see into the biliary tree and clear yellow bile was coming from the biliary tree and thus this vessel bleeding was not secondary to hemobilia. However, just proximal to the sphincterotomy, on a fold, there appeared to be oozing of bright red blood. We irrigated copiously on multiple occasions. The mucosa was intact. The villous pattern was seen, but blood kept oozing from this area. A specific lesion was not seen. It was felt this is likely secondary vascular ectasias on this fold. We then bicapped multiple points on this fold and finally the oozing stopped. We observed this area and no further bright red blood was seen. The fold was smooth and symmetrical and had a benign appearance. No mass lesions or neoplastic changes were seen. We withdrew the scope back in the stomach and cleared out the liquid material from the lavage and it went back into the duodenum. Upon a second and also a third view, no further blood was seen accumulated in the second portion of the duodenum. There was good hemostasis. Scope was withdrawn. The patient tolerated the procedure well. DISPOSITION: The patient with bleeding as noted above. I believe that he had vascular ectasias oozing in the second portion of the duodenum. This was treated with a BiCap probe. I will continue to monitor the patient for further bleeding. <ELECTRONICALLY SIGNED> By: Duncan Moyer MD 10/02/19 1405 [id number] Duncan Moyer MD /nt
[2019-10-02 17:00] VITALS: BP 98/47; BP 99/44
[2019-10-02 18:53] LABS: HEMATOCRIT 23.3 % (42.0-52.0); HEMOGLOBIN 7.5 gm/dL (14.0-18.0)
[2019-10-02 21:38] VITALS: BP 105/66
[2019-10-02 22:44] LABS: HEMATOCRIT 24.2 % (42.0-52.0); HEMOGLOBIN 7.8 gm/dL (14.0-18.0)
[2019-10-03 06:08] LABS: HEMATOCRIT 23.1 % (42.0-52.0); HEMOGLOBIN 7.6 gm/dL (14.0-18.0); MCH 29.9 pg (26.0-34.0); MCHC 33.1 g/dL (28.0-37.0); MCV 90.5 fL (80.0-100.0); RBC 2.55 mil/uL (4.50-6.00); RDW 18.1 % (10.5-14.5); WBC 8.8 thou/uL (4.0-11.0)
[2019-10-03 06:15] LABS: CALCIUM 7.9 mg/dL (8.5-10.1); CREATININE 0.8 mg/dL (0.7-1.3); POTASSIUM 3.4 mmol/L (3.5-5.1)
[2019-10-03 09:00] VITALS: BP 108/46
[2019-10-03 12:35] VITALS: BP 95/48
[2019-10-03 13:48] VITALS: BP 103/59
[2019-10-03 16:23] VITALS: BP 91/51
[2019-10-03 17:46] LABS: HEMATOCRIT 24.2 % (42.0-52.0); HEMOGLOBIN 7.9 gm/dL (14.0-18.0); MCH 29.7 pg (26.0-34.0); MCHC 32.5 g/dL (28.0-37.0); MCV 91.2 fL (80.0-100.0); RBC 2.65 mil/uL (4.50-6.00); RDW 18.2 % (10.5-14.5); WBC 7.1 thou/uL (4.0-11.0)
[2019-10-03 19:15] VITALS: BP 98/53
[2019-10-04 04:45] VITALS: BP 106/58; BP 147/50
[2019-10-04 05:14] LABS: HEMATOCRIT 23.9 % (42.0-52.0); HEMOGLOBIN 7.9 gm/dL (14.0-18.0); MCHC 33.2 g/dL (28.0-37.0); MCV 90.4 fL (80.0-100.0); RBC 2.65 mil/uL (4.50-6.00); RDW 18.2 % (10.5-14.5)
[2019-10-04 08:00] VITALS: BP 121/64
--- NOTE | 2019-10-04 08:39 | EKG ---
[address] [place] [address] ELECTROCARDIOGRAM REPORT Name: MIKEJORDAN SHAY Room #: 218-P ADM IN M.R.#: [id number] Admission: 10/01/19 Attend Phys: Zachary Aguila MD Discharge: Date of : 41 Report #: [id number] THIS REPORT FOR: //name// [facility] Test Date: 2019-10-04 Test Time: 08:30:15 Pat Name: JORDAN PARMAR Department: Room: 218 P Gender: M [employer] Nailer: Mickey FOX : 1945 Requested By: Zachary Aguila Order Number: [id number] MD: Tung Hernandez Measurements Intervals [place] Rate: 89 P: 73 [place]: 165 QRS: 31 QRSD: 90 T: 95 QT: 390 QTc: 475 Interpretive Statements Sinus rhythm Anteroseptal infarct, age indeterminate Compared to ECG 10/01/2019 01:10:27 Myocardial infarct finding now present Electronically Signed On 10-04-2019 8:39:16 [employer] by Tung Hernandez [email or web address] <ELECTRONICALLY SIGNED> By: Tung Hernandez MD, [facility] 10/04/19 0839 9 9 Tung Hernandez MD, [facility] /EPI
[2019-10-04 13:08] VITALS: BP 103/65; BP 136/67
[2019-10-04 16:00] VITALS: BP 119/56
[2019-10-04 18:15] LABS: HEMATOCRIT 28.8 % (42.0-52.0); HEMOGLOBIN 9.4 gm/dL (14.0-18.0); MCH 29.3 pg (26.0-34.0); MCHC 32.8 g/dL (28.0-37.0); MCV 89.6 fL (80.0-100.0); RBC 3.22 mil/uL (4.50-6.00); RDW 17.1 % (10.5-14.5); WBC 7.3 thou/uL (4.0-11.0)
[2019-10-04 19:54] VITALS: BP 144/61
[2019-10-05 04:36] VITALS: BP 169/84
[2019-10-05 08:00] VITALS: BP 135/65
[2019-10-05 11:50] VITALS: BP 124/68
[2019-10-05 16:02] LABS: HEMATOCRIT 26.4 % (42.0-52.0); HEMOGLOBIN 8.7 gm/dL (14.0-18.0); MCH 29.4 pg (26.0-34.0); MCHC 33.1 g/dL (28.0-37.0); RBC 2.96 mil/uL (4.50-6.00); RDW 17.4 % (10.5-14.5); WBC 5.4 thou/uL (4.0-11.0)
[2019-10-05 17:00] VITALS: BP 125/67
[2019-10-05 19:14] VITALS: BP 134/62
[2019-10-06 03:50] VITALS: BP 143/60
[2019-10-06 05:03] LABS: HEMATOCRIT 28.4 % (42.0-52.0); HEMOGLOBIN 9.5 gm/dL (14.0-18.0); MCH 29.9 pg (26.0-34.0); MCHC 33.6 g/dL (28.0-37.0); MCV 89.2 fL (80.0-100.0); RBC 3.18 mil/uL (4.50-6.00); RDW 17.9 % (10.5-14.5); WBC 7.1 thou/uL (4.0-11.0)
[2019-10-06 08:25] VITALS: BP 116/69
[2019-10-06 11:45] VITALS: BP 96/62
[2019-10-06 15:55] LABS: HEMATOCRIT 30.2 % (42.0-52.0); HEMOGLOBIN 9.8 gm/dL (14.0-18.0); MCHC 32.4 g/dL (28.0-37.0); MCV 89.6 fL (80.0-100.0); RBC 3.37 mil/uL (4.50-6.00); RDW 17.8 % (10.5-14.5)
[2019-10-06 21:00] VITALS: BP 111/48
[2019-10-07 04:40] LABS: HEMATOCRIT 28.6 % (42.0-52.0); HEMOGLOBIN 9.5 gm/dL (14.0-18.0); MCH 29.4 pg (26.0-34.0); MCHC 33.3 g/dL (28.0-37.0); MCV 88.3 fL (80.0-100.0); RBC 3.24 mil/uL (4.50-6.00); RDW 17.6 % (10.5-14.5); WBC 6.4 thou/uL (4.0-11.0)
[2019-10-07 04:44] LABS: CALCIUM 8.1 mg/dL (8.5-10.1); CREATININE 0.8 mg/dL (0.7-1.3); POTASSIUM 3.7 mmol/L (3.5-5.1)
[2019-10-07 05:42] VITALS: BP 134/73
[2019-10-07 07:50] VITALS: BP 111/50
[2019-10-07 09:17] VITALS: BP 111/50
[2019-10-07] MEDS ORDERED: IMDUR 30 MG TAB30 M1 PO (09:48)
[2019-10-07] MEDS ORDERED: LISINOPRIL10 MG PO (09:49)
[2019-10-07] MEDS ORDERED: TOPROL XL25 MG PO (09:49)
[2019-10-07] MEDS ORDERED: PROTONIX40 M1 PO (09:50)
== END 2019-10-07 15:38 | DRG 377 ==
LOC: ER 00:54 → 2N 04:23 → EROBS 04:23 → 2N 05:14
PROVIDERS: Emergency Medicine; Internal Medicine; Nurse Practitioner; Specialist; ADMIT Hospitalist
PROC: 0W3P8ZZ Control Bleeding in Gastrointestinal Tract, Via Natural or Artificial Opening Endoscopic (ICD-10-PCS; principal; 2019-10-01)
PROC: 30233N1 Transfusion of Nonautologous Red Blood Cells into Peripheral Vein, Percutaneous Approach (ICD-10-PCS; principal; 2019-10-01)
DX: K55.21 Angiodysplasia of colon with hemorrhage (principal); E43 Unspecified severe protein-calorie malnutrition; Z68.1 Body mass index [BMI] 19.9 or less, adult; K31.811 Angiodysplasia of stomach and duodenum with bleeding; I10 Essential (primary) hypertension; E78.00 Pure hypercholesterolemia, unspecified; E03.9 Hypothyroidism, unspecified; F17.210 Nicotine dependence, cigarettes, uncomplicated; D64.9 Anemia, unspecified; K29.71 Gastritis, unspecified, with bleeding; K44.9 Diaphragmatic hernia without obstruction or gangrene; E78.5 Hyperlipidemia, unspecified; J44.9 Chronic obstructive pulmonary disease, unspecified; I95.9 Hypotension, unspecified; K83.9 Disease of biliary tract, unspecified; E86.0 Dehydration; M54.9 Dorsalgia, unspecified; G89.29 Other chronic pain; I25.10 Atherosclerotic heart disease of native coronary artery without angina pectoris; F17.200 Nicotine dependence, unspecified, uncomplicated; Z93.0 Tracheostomy status; Z91.81 History of falling; Z82.49 Family history of ischemic heart disease and other diseases of the circulatory system; Z90.49 Acquired absence of other specified parts of digestive tract; Z79.891 Long term (current) use of opiate analgesic; Z79.899 Other long term (current) drug therapy; Z85.89 Personal history of malignant neoplasm of other organs and systems; Z80.0 Family history of malignant neoplasm of digestive organs
CPT/HCPCS: 10081; 62110; 62900; 70005